=== PATIENT | female | born 1970 | race Caucasian/White ===

== ENCOUNTER 2020-10-24 10:28 | Outpatient (CLI) | payer BC, SELFPAY ==
--- NOTE | ~2020-10-24 | XR_ITS ---
EXAMINATION: XR chest 2V EXAM DATE: 10/24/2020 10:43 INDICATION: R06.02 - Shortness of breath. TECHNIQUE: Frontal and lateral projections of the chest obtained and reviewed. Comparison is made to prior examination from 05/26/2004. FINDINGS: There is moderate cardiomegaly and/or pericardial effusion. There is indistinct reticulati on with a bibasal predominance which may indicate pulmonary edema. Small pleural effusions. No conflu ent consolidation or pneumothorax. There are no osseous abnormalities identified. IMPRESSION: Cardiomegaly and/or pericardial effusion. Small pleural effusions and probable mild pulm onary edema. Reviewed, dictated and finalized at location B. O RN IMPRESSION: Cardiomegaly and/or pericardial effusion. Small pleural effusions and probable mild pulmonary edema.
--- NOTE | 2020-10-24 10:45 | ECG_ITS ---
Measurements Intervals [place] Rate: 106 P: 80 CO: 136 QRS: -15 QRSD: 145 T: 57 QT: 392 QTc: 521 Interpretive Statements SINUS TACHYCARDIA RIGHT ATRIAL ENLARGEMENT LEFT ATRIAL ENLARGEMENT LEFT BUNDLE BRANCH BLOCK ABNORMAL ECG Electronically Signed On 10-24-2020 12:06:45 [employer]ICKEN [employer]ANGER by Red Zimmer D.O.
== END 2020-10-24 10:29 | disposition home or self-care (01) ==
PROVIDERS: PCP Family Medicine; Visit Provider Physician Assistant
DX: R94.31 Abnormal electrocardiogram [ECG] [EKG] (principal); R06.02 Shortness of breath; I51.7 Cardiomegaly; J90 Pleural effusion, not elsewhere classified
CPT/HCPCS: 71046; 93005

== ENCOUNTER 2020-10-24 11:48 | Observation (INO) | payer BC, SELFPAY ==
[2020-10-24] VITALS (15 sets, daily range): BP systolic 130–168; BP diastolic 78–98; PULSE 94–124; RESP 16–24; TEMP 35.8–36.3; O2SAT 95–99; BMI 24.3
--- NOTE | ~2020-10-24 | CT_ITS ---
EXAMINATION: CTA chest PE protocol EXAM DATE: 10/24/2020 14:13 INDICATION: Dyspnea. Cardiomegaly. TECHNIQUE: Spiral CTA of the chest (pulmonary arteries) was performed with 100 cc Omnipaque 350 intr avenous contrast injection. Images were acquired during the pulmonary arterial phase. Coronal maxi mum intensity projection 3D-reconstructions were created by the technologist on dedicated workstation . Axial, coronal and sagittal reformatted images were reviewed. The dose-length product (DLP) for t his examination was 187.09 mGy-cm. The exposure was tailored according to patient size (auto mA exp osure control), and iterative reconstruction (ASIR) was used as additional dose reduction technique. Correlation is made to chest x-ray same date. FINDINGS: Pulmonary arteries are well opacified and without intraluminal filling defects. There is s everely dilated left ventricle and moderately dilated left atrium. Interlobular septal thickening and interspersed groundglass opacities consistent with moderate pulmonary edema. There are small bilater al pleural effusions. No thoracic aortic dissection. Only trace pericardial fluid. Multi segmental l eft lower lobe atelectasis. Tracheobronchial tree is patent. There is no mediastinal, hilar or axil abby lymphadenopathy. There is no pneumothorax. Heart normal in size. No evidence of coronary a rterial calcification. Upper abdomen is unremarkable. There is thoracic spondylosis without osteob lastic or osteolytic lesions identified. IMPRESSION: 1. CHF exacerbation, with significant left ventricular and atrial enlargement. 2. Small pleural effusions. 3. No pulmonary emboli. Reviewed, dictated and finalized at location B. OR PROGRAMMER
--- NOTE | ~2020-10-24 | XR_ITS ---
EXAMINATION: XR chest 2V DATE: 10/24/2020 12:49 INDICATION: Shortness of breath. TECHNIQUE: Frontal and lateral views of the chest were obtained. COMPARISON: Chest 2 views at 10:39 AM FINDINGS: There is a diffuse interstitial pattern, consistent with mild pulmonary edema. There is a s mall right pleural effusion. No pneumothorax. There is enlargement of the cardiac silhouette. IMPRESSION: 1. Mild pulmonary edema. 2. Small right pleural effusion. 3. Enlargement of the cardiac silhouette, consistent with cardiomegaly and/or pericardial effusion. Reviewed, dictated and finalized at location A. LY CHAIN COORDINATOR IMPRESSION: 1. Mild pulmonary edema. 2. Small right pleural effusion. 3. Enlargement of the cardiac silhouette, consistent with cardiomegaly and/or p ericardial effusion.
--- NOTE | 2020-10-24 11:56 | ECG_ITS ---
Measurements Intervals [place] Rate: 129 P: 72 FL: 140 QRS: -66 QRSD: 141 T: 82 QT: 336 QTc: 492 Interpretive Statements SINUS TACHYCARDIA LEFT AXIS DEVIATION LEFT ATRIAL ENLARGEMENT LEFT BUNDLE BRANCH BLOCK BASELINE ARTIFACT- I, AVL ABNORMAL ECG Electronically Signed On 10-24-2020 13:17:22 DAYCARE DIRECTOR by Red Zimmer D.O.
--- NOTE | 2020-10-24 12:03 | PC.NURSE ---
ekg done at [facility] cardiac dept at 1045 today. no chest pain. no ekg done in triage
[2020-10-24 12:15] LABS: Basophils Absolute Auto 0.1 K/mm3 (0.0-0.1); Basophils Percent Auto 0.6 % (0.2-1.2); Eosinophils Absolute Auto 0.2 K/mm3 (0-0.3); Eosinophils Percent Auto 1.4 % (0-4.4); Hematocrit 41.2 % (37.0-47.0); Immature Granulocyte Absolute 0.03 K/mm3 (0.00-0.031); Immature Granulocyte Percent A 0.2 % (0-0.5); Lymphocytes Absolute Auto 2.39 K/mm3 (0.9-3.2); Lymphocytes Percent Auto 19.9 % (18.3-44.2); Mean Corpuscular Volume 91.4 fl (80-100); Mean Platelet Volume 9.4 fl (7.4-10.4); Monocytes Absolute Auto 0.6 K/mm3 (0.1-0.6); Neutrophils Absolute Auto 8.8 K/mm3 (1.3-6.7); Neutrophils Percent Auto 72.9 % (45.5-73.1); Platelet Count Result 307 k/mm3 (150-375); Red Blood Count 4.51 M/mm3 (4.2-5.4); Red Cell Distribution Width 13.2 % (11.5-14.5)
[2020-10-24 12:26] LABS: Anion Gap 7 mmol/L (8-16); Blood Urea Nitrogen 11 mg/dL (7-17); Carbon Dioxide 22 mmol/L (22-30); Chloride 107 mmol/L (98-107); Estimated CRCL calculation 71 ml/min; Estimated Glomerular Filt Rate > 60; Glucose 116 mg/dL (65-105); Sodium 136 mmol/L (137-145)
--- NOTE | 2020-10-24 13:20 | ED.SOB ---
HPI - SOB/Dyspnea General Chief Complaint: Shortness of Breath/Dyspnea Stated Complaint: FLUID AROUND HEART Time Seen by Provider: 10/24/20 13:12 Source: RN notes reviewed History of Present Illness HPI Narrative: Patient presents emergency department from her PCPs office for shortness of breath. Patient has been feeling short of breath for the past 2 weeks but is been worse over the past 3 days. States that the shortness of breath is worse when she lays flat or does activity she had had an outpatient chest x-ray performed that showed enlarged heart with concerns of fluid around the heart was sent for further evaluation. The patient denies any fevers or chills chest pain coughing or any other symptoms she denies any shortness of breath while sitting in bed Related Data Home Medications Medication Instructions Recorded Confirmed duloxetine 30 mg capsule,delayed 30 mg PO DAILY 10/10/19 07/25/20 release pantoprazole 40 mg tablet,delayed 40 mg PO QAM 10/10/19 07/25/20 release Allergies Allergy/AdvReac Type Severity Reaction Status Date / Time clarithromycin Allergy Unknown Unknown Verified 10/24/20 09:06 codeine Allergy Unknown Unknown Verified 10/24/20 09:06 doxycycline Allergy Unknown Unknown Verified 10/24/20 09:06 erythromycin base Allergy Unknown Unknown Verified 10/24/20 09:06 Review of Systems Review of Systems: Narrative: Gen.: Denies fevers or chills ENT: Denies congestion Respiratory: See HPI CV: Denies chest pain or palpitations GI: Denies abdominal pain nausea, emesis or diarrhea Musculoskeletal: Denies back pain or muscle pain Neuro: Denies numbness, tingling, weakness or focal weakness Skin: Denies rash Except as documented, all other systems reviewed and negative [facility] Past Medical History Medical History Depression GERD (gastroesophageal reflux disease) HLD (hyperlipidemia) Surgical History Surgical History Previous section Family History Family History Grandparent Family history of Parkinson's disease Family history of lung cancer Family history of malignant neoplasm of breast Cerebrovascular accident Family history of malignant neoplasm of breast in first degree relative Father Family history of heart disease in male family member before age 55 Family history of elevated blood lipids Family history of cardiovascular disease Mother Diabetes mellitus Other Family history of coronary artery disease Social History Social History Smoking packs per day: 0.5 Smoking cigarettes per day: 10.0 Years smoked: 20 Smoking pack-years: 10.00 Smoking status: Current every day smoker Tobacco type: cigarettes Second hand tobacco smoke exposure: Yes Alcohol intake: never Gender identity (if verbalized by the patient): Female Exam Narrative: Exam Narrative: APPEARANCE: No acute distress, nontoxic, resting in bed EYES: EOMI HEENT: Normocephalic, atraumatic, OMM RESPIRATORY: No respiratory distress Clear to auscultation bilaterally with no rhonchi wheezing or rales. CARDIOVASCULAR: Regular rate and rhythm without murmurs rubs or gallops. ABDOMINAL: Soft, nontender, nondistended, no rebound or guarding MUSCULOSKELETAl: Moves all extremities. No clubbing, cyanosis or edema. NEURO: Awake and alert. Following commands, speech normal, no focal deficits SKIN:: Warm, dry. No rashes lesions or abrasions PSYCHIATRIC: Normal affect/mood, Course Course Emergency Course: Discussed with KULWINDER Bermeo for Dr. Hayward presentation work-up agrees with admission at this time with Lasix 40 mg given Discussed with Dr. Aguilar for cardiology presentation work-up agrees with consult request patient have echo ordered Discussed with patient and family results of
[2020-10-24 14:49] LABS: NT Pro B Type Natriuretic Pept 4230 PG/ML (5-100)
[2020-10-24 14:58] LABS: Troponin I 0.062 ng/mL (0.000-0.034)
[2020-10-24] MEDS: ASPIRIN 81 MG CHEWABLE TABLET 324 MG PO (15:45)
[2020-10-24] MEDS: FUROSEMIDE INJ 40 MG/4 ML VIAL IV PUSH (15:45)
--- NOTE | 2020-10-24 17:50 | ADMGEN ---
This patient, Fatuma Rosales, was admitted to IMU Room 201-01. Patient/family oriented to hospital policies and general routines including ID bracelet, bed and alarms, visiting hours, pain management, procedures, bathroom and other care routines, personal items, smoking policy, room service/diet, and visiting hours. Information on how to activate the Rapid Response Team has been discussed. Patient/Family are encouraged to report perceived risks to care and to ask questions if they do not understand what they are told or what they should do.
[2020-10-24 18:25] LABS: Troponin I 0.063 ng/mL (0.000-0.034)
--- NOTE | 2020-10-24 20:00 | PM.IMHP ---
H&P: HPI History of Present Illness Date/Time: 10/24/20 20:00 Chief Complaint: Shortness of breath. Narrative: This is a 50-year-old female smoker with hyperlipidemia, GERD, depression, and anxiety who presented to the emergency department earlier today from her primary care provider's office for evaluation of shortness of breath. About 2 weeks ago she began experiencing pressure in the epigastric region, radiating in a bandlike fashion around the upper abdomen. It was nearly constant for approximately 2 to 3 days and has been intermittent since that time. She initially attributed that to her GERD and was taking Pepto-Bismol and Prevacid without much benefit. She sees no pattern as to when the pressure sensation occurs, and specifically denies that is related to food and exertion. Over the last several days she has developed shortness of breath with exertion as well as orthopnea. On Thursday she even cut her walk short due to fatigue and shortness of breath. She ended up going to [facility] yesterday for evaluation. No imaging or labs were done however she did have an EKG which reportedly showed a left bundle branch block and she was instructed to go to the emergency room however she declined. She was seen at her primary care provider's office today and a chest x-ray at that time showed cardiomegaly and/or pericardial effusion as well as small pleural effusions and probable mild pulmonary edema. EKG showed a left bundle branch block and she was referred to the emergency department. Chest CTA done in the emergency department showed findings of a CHF exacerbation with significant left ventricular and left atrial enlargement as well as small pleural effusions; no pulmonary emboli. She has no personal history of heart disease but reports early onset heart disease in her father. She has been under lot of stress lately and was quite tearful at the time of my interview. Before the last couple of weeks she has been feeling well and is in pretty good shape. 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 She denies lightheadedness, diaphoresis, chest pain, pleuritic pain, nausea, and vomiting. Review of Systems Review of Systems: Narrative: Twelve systems were reviewed with pertinent positives and negatives as per HPI. No fever, chills, or sweats. No recent cold or flu symptoms. No rash or lesions. No lower extremity edema. Occasionally when resting she will feel fluttering in the low chest/epigastrium which she has always attributed to her GERD. No melena or hematochezia. Except as documented, all other systems were reviewed and are negative. [facility] Past Medical History Medical History (Updated 10/24/20 @ 22:37 by Elvie Meyers PA-C) Anxiety Depression Gastroesophageal reflux disease Hyperlipidemia Tobacco dependence Surgical History Surgical History (Updated 10/24/20 @ 22:34 by Elvie Meyers PA-C) History of section Family History Family History Grandparent Family history of Parkinson's disease Family history of lung cancer Family history of malignant neoplasm of breast Cerebrovascular accident Family history of malignant neoplasm of breast in first degree relative Father Family history of heart disease in male family member before age 55 Family history of elevated blood lipids Family history of cardiovascular disease Mother Diabetes mellitus Other Family history of coronary artery disease Social History Social History (Updated 10/24/20 @ 22:35 by Elvie Meyers PA-C) Social History: The patient lives in [place]. Her is currently in [place] for work. They have 2 grown children, both who are both students at [employer]. She smokes about half a pack of cigarettes per day but has previously smoked as much as 1.5 packs of cigarettes
[2020-10-24] MEDS: NICOTINE (*PBKC) 14 MG PATCH 1 PATCH TRANSDERM (22:17)
[2020-10-24 22:19] LABS: Troponin I 0.066 ng/mL (0.000-0.034)
[2020-10-24] MEDS: ACETAMINOPHEN 325 MG TABLET 650 MG PO (22:40)
[2020-10-24] MEDS: FUROSEMIDE INJ 40 MG/4 ML VIAL 20 MG IV PUSH (23:10)
[2020-10-25] VITALS (17 sets, daily range): BP systolic 119–154; BP diastolic 54–91; PULSE 92–118; RESP 16–20; TEMP 36.2–36.6; O2SAT 95–98
[2020-10-25 05:34] LABS: Basophils Absolute Auto 0.1 K/mm3 (0.0-0.1); Basophils Percent Auto 0.6 % (0.2-1.2); Eosinophils Absolute Auto 0.2 K/mm3 (0-0.3); Eosinophils Percent Auto 1.8 % (0-4.4); Hematocrit 44.3 % (37.0-47.0); Immature Granulocyte Absolute 0.04 K/mm3 (0.00-0.031); Immature Granulocyte Percent A 0.4 % (0-0.5); Lymphocytes Absolute Auto 2.56 K/mm3 (0.9-3.2); Lymphocytes Percent Auto 26.6 % (18.3-44.2); Mean Corpuscular HGB Conc 33.9 g/dl (32-36); Mean Corpuscular Hemoglobin 30.5 pg (26-34); Mean Platelet Volume 9.9 fl (7.4-10.4); Monocytes Absolute Auto 0.6 K/mm3 (0.1-0.6); Monocytes Percent Auto 5.9 % (2.6-8.5); Neutrophils Absolute Auto 6.2 K/mm3 (1.3-6.7); Neutrophils Percent Auto 64.7 % (45.5-73.1); Platelet Count Result 330 k/mm3 (150-375); Red Blood Count 4.92 M/mm3 (4.2-5.4); Red Cell Distribution Width 12.8 % (11.5-14.5); White Blood Count 9.6 K/mm3 (4.5-10.0)
[2020-10-25 05:54] LABS: Anion Gap 8 mmol/L (8-16); Blood Urea Nitrogen 12 mg/dL (7-17); Calcium 8.7 mg/dL (8.4-10.2); Carbon Dioxide 29 mmol/L (22-30); Chloride 100 mmol/L (98-107); Cholesterol 179 mg/dL (0-200); Estimated CRCL calculation 55 ml/min; Estimated Glomerular Filt Rate > 60; Glucose 99 mg/dL (65-105); HDL Direct 46 mg/dL; Magnesium 1.6 mg/dL (1.6-2.3); Sodium 137 mmol/L (137-145); Triglycerides 101 mg/dL (<150)
--- NOTE | 2020-10-25 06:00 | ECHO_ITS ---
Patient Info Name: Fatuma Rosales Age: 50 years : 1970 Gender: Female Ht: 61 in Wt: 128 lbs BSA: 1.59 m2 HR: 93 bpm BP: 154 / 84 mmHg Technical Quality: Good Exam Date: 10/25/2020 8:35 AM Exam Location: [facility] Pul[facility] Patient Status: Inpatient Admit Date: 10/24/2020 Staff Ordering Physician: Vinay Livingston DO Director Experimental Medicine: Tom Christy, MANSOOR, RT Attending Provider: Min Hayward MD Referring Physician: Yara SHARMA; Exam Type: CA echo doppler color flow Study Info Indications I50.1 - Left ventricular failure Complete two-dimensional, color flow and Doppler transthoracic echocardiogram is performed. Strain analysis performed. Summary 1. Complete two-dimensional, color flow and Doppler transthoracic echocardiogram is performed. 2. Left ventricular chamber dimension is severely enlarged. 3. Left ventricular systolic function is severely reduced, estimated at <15%. 4. The left ventricular diastolic function is grade I diastolic dysfunction. 5. Global longitudinal strain is abnormal at -4 %. 6. There is mild aortic valve sclerosis. 7. There is mild mitral valve regurgitation. Left Ventricle Left ventricular chamber dimension is severely enlarged. Left ventricular systolic function is severely reduced, estimated at <15%. There is no increased left ventricular wall thickness. Left ventricular septal wall motion is normal. The left ventricular diastolic function is grade I diastolic dysfunction. Global longitudinal strain is abnormal at -4 %. Right Ventricle Right ventricular chamber dimension is normal. Right ventricular systolic function is normal. Left Atria Left atrial chamber dimension is normal. Right Atria Right atrial chamber dimension is normal. Atrial Septum Intact interatrial septum visualized by color flow imaging. Aortic Valve The aortic valve is trileaflet. There is mild aortic valve sclerosis. There is no aortic valve stenosis. There is no aortic valve regurgitation. Pulmonic Valve The pulmonic valve is normal. There is no pulmonic valve stenosis. There is no pulmonic regurgitation. Mitral Valve The mitral valve has normal leaflets. There is no mitral valve stenosis. There is mild mitral valve regurgitation. Tricuspid Valve The tricuspid valve leaflets are normal. There is no significant tricuspid valve stenosis. There is no tricuspid valve regurgitation. Pericardium/Pleural The pericardium appears normal. There is no pericardial effusion. Inferior Vena Cava Normal inferior vena cava with >50% collapse upon inspiration consistent with normal right atrial pressure, 5 mmHg. Aorta The aortic root size at the sinus of Valsalva is normal. The prox ascending aorta size is normal. Left Ventricular Outflow Tract Name Value Normal LVOT 2D LVOT Diameter 2.0 cm LVOT Doppler LVOT Peak Gradient 6 mmHg LVOT Mean Gradient 3 mmHg LVOT VTI 18 cm LVOT VTI/AV VTI Ratio 0.9 LVOT Stroke Volume
[2020-10-25 06:05] LABS: LDL Cholesterol Direct 119 mg/dL
[2020-10-25] MEDS: NICOTINE (*PBKC) 14 MG PATCH 1 PATCH TRANSDERM (09:56)
[2020-10-25] MEDS: DULoxetine HCL 30 MG CAPSULE.DR PO (09:57)
[2020-10-25] MEDS: ENOXAPARIN 40 MG/0.4 ML SYRINGE SUB-Q (09:57)
[2020-10-25] MEDS: SIMVASTATIN 10 MG TABLET PO (09:57)
--- NOTE | 2020-10-25 10:11 | PM.CNCAR ---
Assessment and Plan Assessment and plan (1) Cardiomyopathy: Code(s): I42.9 - Cardiomyopathy, unspecified Status: Acute Assessment and Plan: New diagnosis severe dilated cardiomyopathy EF less than 20%. Etiology unclear, however, ischemic versus nonischemic discussed in detail the patient. Clinically with suspect nonischemic given symptom and progression yet patient reports family history premature atherosclerosis in her father with CAD and cardiomyopathy. Optimal medical therapy. Discussed the significant benefits with Entresto and beta lanie therapy. Will attempt to obtain through insurance. Otherwise ramipril 2.5 mg daily and carvedilol 3.125 mg twice daily. We discussed in detail noninvasive versus invasive ischemic assessment. Given severe LV dysfunction coronary angiography advised for definitive evaluation of coronary anatomy. Patient verbalized understanding and agreed with plan of care. Risks, benefits, and alternatives discussed. Patient in agreement. Further recommendations to follow post cardiac catheterization. If no significant obstructive CAD is identified in patient is otherwise hemodynamically stable she may be considered for discharge home tomorrow afternoon to follow up as an outpatient. NPO after midnight for coronary angiography tomorrow at 7:30 a.m. (2) Congestive heart failure: Code(s): I50.9 - Heart failure, unspecified Status: Acute Assessment and Plan: Essentially euvolemic at this time after IV Lasix from presentation. She presented with acute decompensated heart failure with reduced ejection fraction. Management as above. (3) Elevated troponin: Code(s): R77.8 - Other specified abnormalities of plasma proteins Status: Acute Assessment and Plan: Flat curve, mild elevation secondary to decompensated heart failure, severe LV dysfunction with strain as opposed to acute coronary syndrome and/or plaque rupture. Therefore, most likely non RI troponin elevation or type 2 infarct. Aspirin 81 mg daily. Angiography as above. (4) Left bundle branch block: Code(s): I44.7 - Left bundle-branch block, unspecified Status: Acute Assessment and Plan: Secondary to dilated cardiomyopathy or severe multivessel CAD. Coronary angiography to delineate. We discussed the significance of this finding as well in detail. All questions answered to her satisfaction. (5) HLD (hyperlipidemia): Qualifiers: Hyperlipidemia type: unspecified Qualified Code(s): E78.5 - Hyperlipidemia, unspecified Code(s): E78.5 - Hyperlipidemia, unspecified Status: Acute Assessment and Plan: If CAD, goal LDL less than 70. Continue statin therapy. (6) Tobacco dependence: Code(s): F17.200 - Nicotine dependence, unspecified, uncomplicated Status: Acute Assessment and Plan: Smoking cessation counseling performed. Patient verbalized understanding and agrees with plan of care. History of Present Illness History of Present Illness Consult date/time: Date of service: 10/25/20 10:11 Cardiology consultation at the request of Elvie Meyers of the [facility] Hospital[facility] service for my opinion regarding CHF, new cardiomyopathy. Requesting physician: Elvie Meyers PA-C Consult reason: congestive heart failure Reason For Visit: CHF/elevated troponin Narrative: Patient is a pleasant 50-year-old female with a past medical history significant for tobacco abuse and dyslipidemia, GERD, and depression anxiety who presents emergency department complaints of worsening 2 weeks constant upper epigastric pressure/tightness in a bandlike radiation worse lying down and with activity. This symptom progressed along with fatigue, exertional dyspnea particularly over the preceding 2-3 days she initially thought was related to acid reflux without resolution with [id number] therapy. She presented to urgent care and then with her PCP in giv
[2020-10-25] MEDS: FUROSEMIDE 20 MG TABLET PO (11:06)
[2020-10-25] MEDS: SACUBITRIL/VALSARTAN 24-26 MG TABLET 1 TAB PO ×2 (11:06→20:32)
[2020-10-25] MEDS: ASPIRIN 81 MG ENTERIC TABLET PO (11:06)
--- NOTE | 2020-10-25 12:00 | PM.IMPN ---
Progress Note: A&P Assessment and Plan (1) Left bundle branch block: Code(s): I44.7 - Left bundle-branch block, unspecified Status: Acute Assessment and Plan: Cardiology was consulted pending final evaluation (2) Congestive heart failure: Code(s): I50.9 - Heart failure, unspecified Status: Acute Assessment and Plan: Acute CHF exacerbation pending ankle to the mind if it is systolic or diastolic and due to the mine further workup Patient does not have history of CHF Patient has family history of heart disease Still continued to complain of shortness of breath Patient denies chest pain denies alcohol or drug abuse Pending echo continue IV diuresis (3) GERD (gastroesophageal reflux disease): Code(s): K21.9 - Gastro-esophageal reflux disease without esophagitis Status: Acute Assessment and Plan: Stable continue PPI (4) Depression: Qualifiers: Depression Type: major depressive disorder Major depression recurrence: single episode Active/Remission status: currently active Major depression episode severity: mild Qualified Code(s): F32.0 - Major depressive disorder, single episode, mild Code(s): F32.9 - Major depressive disorder, single episode, unspecified Status: Acute Assessment and Plan: Stable continue Cymbalta (5) HLD (hyperlipidemia): Qualifiers: Hyperlipidemia type: unspecified Qualified Code(s): E78.5 - Hyperlipidemia, unspecified Code(s): E78.5 - Hyperlipidemia, unspecified Status: Acute Assessment and Plan: Stable continue simvastatin Subjective Date/time seen: 10/25/20 12:00 Patient seen and examined Patient feels weak she is short of breath with activity Patient was admitted to the hospital with chest pain and shortness of breath CT scan of the chest was done negative for PE so severely dilated left ventricular left atrium Patient denies fever headache chest pain I am seeing the patient for shortness of breath Exam Narrative: Exam Narrative: Alert Chest no wheeze crackles Abdomen nontender nondistended CVS S1 + S2 Lower extremity edema Objective Data Vital Signs Vital Signs: Vital Signs - 24 hr 10/24/20 13:07 10/24/20 13:29 10/24/20 14:34 Temperature Pulse Rate 124 H 113 H Respiratory Rate 22 H 23 H Blood Pressure 154/98 H 130/83 Pulse Oximetry 95 98 97 10/24/20 14:52 10/24/20 15:46 10/24/20 17:12 Temperature Pulse Rate 112 H 115 H 105 H Respiratory Rate 17 24 H 20 Blood Pressure 148/89 H 158/97 H 144/86 H Pulse Oximetry 99 97 98 10/24/20 17:26 10/24/20 17:49 10/24/20 17:55 Temperature 96.5 F L 96.5 F L Pulse Rate 112 H 100 100 Respiratory Rate 17 16 16 Blood Pressure 142/86 H 168/87 H 168/87 H Pulse Oximetry 98 97 97 10/24/20 18:00 10/24/20 19:43 10/24/20 20:00 Temperature 96.5 F L Pulse Rate 104 H 98 98 Respiratory Rate 16 16 Blood Pressure 160/78 H Pulse Oximetry 95 95 10/24/20 21:52 10/24/20 23:49 10/25/20 00:00 Temperature 97.6 F Pulse Rate 94 94 98 Respiratory Rate 16 20 Blood Pressure 152/91 H Pulse Oximetry 95 96 10/25/20 02:00 10/25/20 04:00 10/25/20 05:26 Temperature 97.1 F L Pulse Rate 94 102 H 100 Respiratory Rate 20 Blood Pressure 154/84 H Pulse Oximetry 95 10/25/20 08:00 10/25/20 10:00 10/25/20 11:06 Temperature 97.6 F 97.5 F L Pulse Rate 103 H 106 H 103 H Respiratory Rate 16 16 Blood Pressure 131/68 125/77 Pulse Oximetry 97 97 10/25/20 11:30 Temperature Pulse Rate Respiratory Rate Blood Pressure Pulse Oximetry 97 Intake/Output Intake/Output: Intake & Output 10/22/20 10/23/20 10/24/20 10/25/20 23:59 23:59 23:59 23:59 Intake Total 240 840 Balance 240 840 Meds/Results Medications: Active Medications Generic Name Dose Route Start Last Admin Trade Name Freq PRN Reason Stop Dose Admin Acetaminophen 650 mg 10/24/20 22:25 10/24/20 22:40 Acetam
--- NOTE | 2020-10-25 17:24 | PHAR ---
HOME MED VERIFED REGAN D 24 HOUR 1 DAILY
[2020-10-25] MEDS: carvediloL 3.125 MG TABLET PO (20:32)
[2020-10-26] VITALS (20 sets, daily range): BP systolic 99–138; BP diastolic 53–82; PULSE 88–112; RESP 16–18; TEMP 36.6; O2SAT 82–97
--- NOTE | 2020-10-26 07:38 | WPDMODSED ---
Moderate Sedation Note-Pt Data Patient Data Diagnosis: new cardiomyopathy, CHF Present Complaint: none Procedure to be performed/Plan: Left heart catheterization wtih selective right and left and coronary angiography with left ventriculography and hemodynamics with possible percutaneous intervention and stent implantation Allergies Allergy/AdvReac Type Severity Reaction Status Date / Time clarithromycin Allergy Unknown Rash Verified 10/24/20 18:00 codeine Allergy Unknown Vomiting Verified 10/24/20 18:00 doxycycline Allergy Unknown Rash Verified 10/24/20 18:00 erythromycin base Allergy Unknown Rash Verified 10/24/20 18:00 Home Medications Medication Instructions Recorded Confirmed Type duloxetine 30 mg capsule,delayed 30 mg PO DAILY 10/10/19 10/24/20 History release fexofenadine-pseudoephedrine ER 1 tablet PO DAILY #90 tablet 08/24/20 10/24/20 Rx 180 mg-240 mg tablet,ext.release 24 hr simvastatin 10 mg PO DAILY 10/24/20 10/24/20 History fexofenadine-pseudoephedrine 1 tablet PO DAILY 10/25/20 10/25/20 History [Yudy-D 24 Hour] Current Medications: Active Medications Acetaminophen (Acetaminophen 325 Mg Tablet) 650 mg PO Q6H PRN PRN Reason: Mild Pain (1-3) or Fever Last Admin: 10/24/20 22:40 Dose: 650 mg Documented by: Aspirin (Aspirin 81 Mg Enteric Tablet) [facility] [place] Last Admin: 10/25/20 11:06 Dose: 81 mg Documented by: Carvedilol (Carvedilol 3.125 Mg Tablet) 3.125 mg PO Q12HR [facility] Last Admin: 10/25/20 20:32 Dose: 3.125 mg Documented by: Duloxetine HCl (Duloxetine Hcl 30 Mg Capsule.Dr) 30 mg PO DAILY [facility] Last Admin: 10/25/20 09:57 Dose: 30 mg Documented by: Enoxaparin Sodium (Enoxaparin 40 Mg/0.4 Ml Syringe) 40 mg SUB-Q DAILY [facility] Last Admin: 10/25/20 09:57 Dose: 40 mg Documented by: Furosemide (Furosemide 20 Mg Tablet) 20 mg PO DAILY [facility] Last Admin: 10/25/20 11:06 Dose: 20 mg Documented by: Nicotine (Nicotine (*Pbkc) 14 Mg Patch) 1 patch [facility]ERM [facility] Last Admin: 10/25/20 09:56 Dose: 1 patch Documented by: Sacubitril/Valsartan (Sacubitril/Valsartan 24-26 Mg Tablet) 1 tab PO Q12HR [facility] Last Admin: 10/25/20 20:32 Dose: 1 tab Documented by: Simvastatin (Simvastatin 10 Mg Tablet) 10 mg PO DAILY [facility] Last Admin: 10/25/20 09:57 Dose: 10 mg Documented by: Sedation/Anesthesia: No previous sedation/anesthesia problems (including family history). PMFSH Past Medical History Medical History Anxiety Depression Gastroesophageal reflux disease Hyperlipidemia Tobacco dependence Surgical History Surgical History History of section Family History Family History Grandparent Family history of Parkinson's disease Family history of lung cancer Family history of malignant neoplasm of breast Cerebrovascular accident Family history of malignant neoplasm of breast in first degree relative Father Family history of heart disease in male family member before age 55 Family history of elevated blood lipids Family history of cardiovascular disease Mother Diabetes mellitus Other Family history of coronary artery disease Social History Social History Social History: The patient lives in [place]. Her is currently in [place] for work. They have 2 grown children, both who are both students at [employer]. She smokes about half a pack of cigarettes per day but has previously smoked as much as 1.5 packs of cigarettes a day. She drinks perhaps 1 alcoholic beverage a week. No illicit substance use. Full code. Smoking packs per day: 0.5 Smoking cigarettes per day: 10.0 Years smoked: 25 Smoking pack-years: 12.50 Smoking status: Current every day smoker Tobacco type: cigarettes Second hand
--- NOTE | 2020-10-26 08:07 | WPDCARDPROC ---
Cardiac Cath Procedure Note Date of procedure:: 10/26/20 Performing physician:: Sunil Aguilar MD Indication:: new diagnosis cardiomyopathy, CHF with mild troponin elevation Brief clinical history:: Patient is a 50-year-old female with a past medical history significant for tobacco abuse,dyslipidemia, and family history premature atherosclerosis in her father presented with progressive fatigue, exertional dyspnea admitted with new onset heart failure discovered to have severe dilated LV dysfunction EF estimated approximately 20% with a mild flat troponin elevation 0.06 referred for left heart catheterization for delineation of her coronary anatomy. Procedure Procedure performed:: PROCEDURES PERFORMED: 1. Left heart catheterization 2. Selective left and right coronary angiography 3. Left ventriculography and hemodynamics 4. Moderate/conscious sedation administration Sedation/Medication given:: MODERATE SEDATION/ANESTHESIA ADMINISTRATION: Patient reports no prior problems with sedation/anesthesia. Please see pre-sedation noted for physical examination documentation. Sedation start time was 0745 and end time was 0802 for a total intra-service/procedure face-face time of 17 minutes. A total of 1 mg intravenous Versed and a total of 50 mcg intravenous Fentanyl was administered for moderate sedation. Moderate sedation was administered by qualified/certified observer Sheryl Cruz RN under my supervision with intra-procedure [id number] observation and management throughout the entirety of the procedure. There were no other issues or complications and patient tolerated the procedure well. See post-anesthesia documentation. Access site:: right femoral artery Estimated blood loss:: 5-10cc Procedure note:: CATHETERS UTILIZED: Left coronary system- 5 Latvian JL4 catheter Right coronary system- 5 Latvian JR4 catheter Left ventriculography and hemodynamics- 5 Latvian angled pigtail catheter PROCEDURE IN DETAIL: After verbal and written informed consent was obtained the patient, risks, benefits, and alternatives explained in detail the patient agreed to proceed with the plan of care as outlined above. The patient was subsequently brought to the cardiac catheterization lab, placed on the cardiac catheterization table, and prepped and draped in the usual sterile fashion. Utilizing approximately 12cc of 1% subcutaneous Lidocaine, the right groin was then locally anesthetized. Utilizing the modified Seldinger technique, a 5 Latvian arterial vascular access sheath was inserted in the right common femoral artery easily and without complications. Through this access, coronary angiography was subsequently obtained in multiple standard re-projections. Following this, a 5 Latvian angled pigtail catheter was advanced retrograde across aortic valve into the cavity of the left ventricle. Left ventriculography was performed and pullback across aortic valve was subsequently recorded. The vascular access sheath and angiographic catheters were flushed before and after catheter exchanges. At the conclusion of the diagnostic portion of the procedure, all angiographic guidewires and catheters were removed and the 5 Latvian arterial vascular access sheath was then pulled and satisfactory hemostasis was achieved using manual compression. There no complications noted at the conclusion of the diagnostic portion of the study. Findings:: CORONARY ANGIOGRAPHY: The LEFT MAIN arose from the left coronary cusp and was without angiographically significant disease. The left main then trifurcated into the left anterior descending artery, small ramus intermedius branch, and circumflex coronary artery. LEFT ANTERIOR DESCENDING ARTERY: The left anterior descending artery was a small to moderate caliber vessel extending to the apex giving rise to moderate septal wood lather branch and a small diagonal branch and is angiographically normal. RAMUS INTERMEDIUS BRANCH: Smaller caliber vesse
--- NOTE | 2020-10-26 09:13 | PC.NURSE ---
Patient left for labor standards director about 0715. This RN did not see/assess patient before leaving the floor this AM.
[2020-10-26] MEDS: POTASSIUM CHLORIDE 20 MEQ PACKET (FOR LIQUID) 40 MEQ PO (10:14)
[2020-10-26] MEDS: SACUBITRIL/VALSARTAN 24-26 MG TABLET 1 TAB PO (10:18)
[2020-10-26] MEDS: NICOTINE (*PBKC) 14 MG PATCH 1 PATCH TRANSDERM (10:18)
[2020-10-26] MEDS: DULoxetine HCL 30 MG CAPSULE.DR PO (10:20)
[2020-10-26] MEDS: carvediloL 3.125 MG TABLET PO (10:20)
[2020-10-26] MEDS: SODIUM CHLORIDE 0.9% IV 1,000 ML 125 ML IV CONT (10:21)
[2020-10-26] MEDS: SIMVASTATIN 10 MG TABLET PO (10:21)
[2020-10-26] MEDS: ASPIRIN 81 MG ENTERIC TABLET PO (10:21)
[2020-10-26] MEDS: ENOXAPARIN 40 MG/0.4 ML SYRINGE SUB-Q (10:22)
[2020-10-26 10:47] LABS: Basophils Percent Auto 0.3 % (0.2-1.2); Eosinophils Absolute Auto 0.1 K/mm3 (0-0.3); Eosinophils Percent Auto 0.7 % (0-4.4); Hematocrit 46.7 % (37.0-47.0); Hemoglobin 15.8 g/dL (12.0-15.0); Immature Granulocyte Absolute 0.04 K/mm3 (0.00-0.031); Immature Granulocyte Percent A 0.3 % (0-0.5); Lymphocytes Absolute Auto 2.07 K/mm3 (0.9-3.2); Lymphocytes Percent Auto 17.1 % (18.3-44.2); Mean Corpuscular HGB Conc 33.8 g/dl (32-36); Mean Corpuscular Hemoglobin 30.9 pg (26-34); Mean Corpuscular Volume 91.2 fl (80-100); Mean Platelet Volume 9.4 fl (7.4-10.4); Monocytes Absolute Auto 0.9 K/mm3 (0.1-0.6); Monocytes Percent Auto 7.1 % (2.6-8.5); Neutrophils Percent Auto 74.5 % (45.5-73.1); Platelet Count Result 342 k/mm3 (150-375); Red Blood Count 5.12 M/mm3 (4.2-5.4); White Blood Count 12.1 K/mm3 (4.5-10.0)
[2020-10-26 10:58] LABS: Alanine Aminotransferase 18 U/L (4-35); Albumin Level 3.8 g/dL (3.5-5.1); Alkaline Phosphatase 63 U/L (38-126); Anion Gap 8 mmol/L (8-16); Aspartate Amino Transferase 22 U/L (14-36); Bilirubin,Total 0.8 mg/dL (0.2-1.3); Blood Urea Nitrogen 13 mg/dL (7-17); Calcium 8.7 mg/dL (8.4-10.2); Carbon Dioxide 24 mmol/L (22-30); Chloride 105 mmol/L (98-107); Estimated CRCL calculation 62 ml/min; Estimated Glomerular Filt Rate > 60; Glucose 121 mg/dL (65-105); Potassium 3.8 mmol/L (3.4-5.0); Sodium 137 mmol/L (137-145)
[2020-10-26] MEDS: FUROSEMIDE 20 MG TABLET PO (12:08)
--- NOTE | 2020-10-26 13:36 | PM.PNCARD ---
Progress Note: A&P Assessment and Plan (1) Cardiomyopathy: Code(s): I42.9 - Cardiomyopathy, unspecified Status: Acute Assessment and Plan: Status post left heart catheterization normal coronary anatomy consistent with dilated nonischemic cardiomyopathy EF 20%. Patient at elevated risk for sudden cardiac due to VT and or VF. Discussed risks, benefits, and alternatives with life vest to reduce risk for sudden cardiac and the rationale in this regard. Patient verbalized understanding and expressed a desire to proceed with wearing a LifeVest. Although she will need to follow-up with a new camera operator after her initial follow-up visit due to her insurance as she agrees I will initiate life vest arrangements for fitting of prior to discharge. Patient verbalized understanding and agreed with this plan of care. Stable for discharge home a after LifeVest fitting. As insurance has not yet approved Nehal will discharge on ramipril 2.5 mg daily, carvedilol 3.125 mg twice daily, Lasix 20 mg daily and continuation of statin therapy. She does not require aspirin at this time. She will follow-up with me 1 time after her hospitalization and then will need to establish with a new camera operator due to insurance restrictions. (2) Congestive heart failure: Code(s): I50.9 - Heart failure, unspecified Status: Acute Assessment and Plan: Euvolemic. She presented with acute decompensated heart failure with reduced ejection fraction. Management as above. Lasix 20 mg daily. Check BMP in 1 week post discharge. (3) Elevated troponin: Code(s): R77.8 - Other specified abnormalities of plasma proteins Status: Acute Assessment and Plan: Flat curve, mild elevation secondary to decompensated heart failure, severe LV dysfunction with strain. (4) Left bundle branch block: Code(s): I44.7 - Left bundle-branch block, unspecified Status: Acute Assessment and Plan: Secondary to dilated cardiomyopathy or severe multivessel CAD. Coronary angiography to delineate. We discussed the significance of this finding as well in detail. All questions answered to her satisfaction. (5) HLD (hyperlipidemia): Qualifiers: Hyperlipidemia type: unspecified Qualified Code(s): E78.5 - Hyperlipidemia, unspecified Code(s): E78.5 - Hyperlipidemia, unspecified Status: Acute Assessment and Plan: If CAD, goal LDL less than 70. Continue statin therapy. (6) Tobacco dependence: Code(s): F17.200 - Nicotine dependence, unspecified, uncomplicated Status: Acute Assessment and Plan: Smoking cessation counseling performed. Patient verbalized understanding and agrees with plan of care. Subjective Date/time seen: Date of service: 10/26/20 13:36 Follow-up for CHF, new diagnosis cardiomyopathy Status post left heart catheterization, no CAD, nonischemic cardiomyopathy EF 20%. Denies chest pain, shortness of breath, feels well. Stable for discharge today. Review of Systems Review of Systems: All systems reviewed & are unremarkable except as noted in HPI and below Constitutional: Constitutional: Reports as per HPI, Reports no additional constitutional complaints, Reports fatigue and Reports weakness Eyes: Eyes: Reports as per HPI and Reports no additional eye complaints ENT: Reports system reviewed and no additional complaints, except as documented and Reports as per HPI Cardiovascular: Cardiovascular: Reports as per HPI, Reports no additional cardiovascular complaints, Reports chest pain, Denies diaphoresis, Denies pedal edema, Denies leg edema, Denies lightheadedness, Denies palpitations, Reports dyspnea and Reports dyspnea on exertion Respiratory: Respiratory: Reports as per HPI, Reports no additional respiratory complaints, Denies cough, Reports dyspnea, Reports dyspnea on exertion and Denies wheezing Gastrointestinal: Gastrointestinal: Reports as pe
--- NOTE | 2020-10-26 13:49 | PM.DS ---
DS: Admitting Diagnosis Admitting Diagnosis Admitting Diagnosis: Shortness of breath DS: Discharge Diagnosis Discharge Diagnosis (1) Left bundle branch block: Code(s): I44.7 - Left bundle-branch block, unspecified Status: Acute Assessment and Plan: Cardiology was consulted cardiac catheterization was done was negative for significant coronary artery disease (2) Congestive heart failure: Code(s): I50.9 - Heart failure, unspecified Status: Acute Assessment and Plan: acute on top of chronic systolic CHF exacerbation Life vest Patient does not have history of CHF Patient has family history of heart disease Still continued to complain of shortness of breath Patient denies chest pain denies alcohol or drug abuse Follow-up with cardiology as outpatient Patient will be discharged on oral diuretics Patient has hypokalemia repeat CMP in 1 week follow-up with PCP (3) GERD (gastroesophageal reflux disease): Code(s): K21.9 - Gastro-esophageal reflux disease without esophagitis Status: Acute Assessment and Plan: Stable continue PPI (4) Depression: Qualifiers: Depression Type: major depressive disorder Major depression recurrence: single episode Active/Remission status: currently active Major depression episode severity: mild Qualified Code(s): F32.0 - Major depressive disorder, single episode, mild Code(s): F32.9 - Major depressive disorder, single episode, unspecified Status: Acute Assessment and Plan: Stable continue Cymbalta (5) HLD (hyperlipidemia): Qualifiers: Hyperlipidemia type: unspecified Qualified Code(s): E78.5 - Hyperlipidemia, unspecified Code(s): E78.5 - Hyperlipidemia, unspecified Status: Acute Assessment and Plan: Stable continue simvastatin DS: Summary Hospital Course Hospital Course: Patient was admitted to the hospital with shortness of breath was found to have acute on top of chronic systolic CHF exacerbation treated with IV diuresis follow-up with cardiology as outpatient patient will need further workup for etiology of CHF may need cardiac MRI cardiac catheterization was negative for acute coronary artery disease Time Spent with Patient Time attestation: Total time spent providing and/or coordinating discharge services: Exam Narrative: Exam Narrative: Alert Chest no wheeze crackles Abdomen nontender nondistended CVS S1 + S2 Lower extremity edema DS: Data Data Completed and Pending Labs on day of discharge: Labs from last 24 hours 10/26/20 10/26/20 10:13 10:13 WBC 12.1 H RBC 5.12 Hgb 15.8 H Hct 46.7 MCV 91.2 MCH 30.9 MCHC 33.8 RDW 13.0 Plt Count 342 MPV 9.4 Immature Gran % (Auto) 0.3 Neut % (Auto) 74.5 H Lymph % (Auto) 17.1 L [place] % (Auto) 7.1 Eos % (Auto) 0.7 Baso % (Auto) 0.3 Lymph # (Auto) 2.07 [place] # (Auto) 0.9 H Eos # (Auto) 0.1 Baso # (Auto) 0.0 Abs Immat Gran (auto) 0.04 H Absolute Neuts (auto) 9.0 H Absolute Nucleated RBC 0.0 Nucleated RBC % 0.0 Sodium 137 Potassium 3.8 Chloride 105 Carbon Dioxide 24 Anion Gap 8 BUN 13 Creatinine 0.70 Estim Creat Clear Calc 62 Estimated GFR > 60 Glucose 121 H Calcium 8.7 Total Bilirubin 0.8 AST 22 ALT 18 Alkaline Phosphatase 63 Total Protein 6.0 L Albumin 3.8 Discharge Plan Discharge Attending physician on discharge: Agustin Arita M.A. Consulting providers: Sunil Aguilar Discharging Clinician: Agustin Arita M.A. Anticipated Discharge Date/Time: 10/26/20 13:49 Patient Disposition: Home, Self-Care Activity: as tolerated Diet: low sodium Discharge Instructions: No driving for 24 hours. No lifting, pushing, or pulling more than 10 lb for 1 week. No strenuous exercise or activity (including sex) for 1 week May shower but no tub baths or swimming pool for 1 week Avoid pressure hot tub Stay
== END 2020-10-26 14:48 | disposition home or self-care (01) ==
LOC: ANHED 15:00 → ANHIMU 18:26
PROVIDERS: Emergency Medicine; Internal Medicine Cardiovascular Disease; Physician Assistant; Admitting Provider Internal Medicine; Emergency Provider Emergency Medicine; PCP Family Medicine; Visit Provider Internal Medicine
PROC: 4A023N7 Measurement of Cardiac Sampling and Pressure, Left Heart, Percutaneous Approach (ICD-10-PCS; CPT 93452; principal; 2020-10-26 07:00)
DX: I11.0 Hypertensive heart disease with heart failure (principal); I50.23 Acute on chronic systolic (congestive) heart failure; I44.7 Left bundle-branch block, unspecified; I42.9 Cardiomyopathy, unspecified; E87.6 Hypokalemia; E78.5 Hyperlipidemia, unspecified; F17.210 Nicotine dependence, cigarettes, uncomplicated; F41.8 Other specified anxiety disorders; K21.9 Gastro-esophageal reflux disease without esophagitis; R77.8 Other specified abnormalities of plasma proteins
CPT/HCPCS: 36415; 71046; 71275; 80048; 80053; 80061; 83735; 83880; 84443; 84484; 85025; 93005; 93306; 93458; 96372; 96374; 96376; 99285; A9270; C1887; C1894; G0378; J1644; J1650; J1940; J2250; J3010; J7030; J7040; Q9967

== ENCOUNTER 2020-11-21 16:02 | Outpatient (CLI) | payer BC, SELFPAY ==
--- NOTE | ~2020-11-21 | MM_ITS ---
EXAMINATION: MM screening nadine BI w julianna HISTORY: Screening mammogram TECHNIQUE: Craniocaudal and mediolateral oblique 3-D tomosynthesis images were obtained and synthetic 2-D images were generated. CAD analysis was submitted and interpreted. COMPARISON: 10/06/2019 bilateral digital screening mammogram 8. 5 12/2017 diagnostic left digital mammogram 05/06/2018, 09/17/2016 bilateral digital screening mammogram examinations BREAST PARENCHYMAL COMPOSITION: The breasts are heterogeneously dense, which may obscure small masses . FINDINGS: There is no evidence of suspicious mass, calcification, or architectural distortion to sugg est malignancy in either breast. There has been no suspicious interval change. IMPRESSION: 1. No mammographic evidence of malignancy. 2. Recommend routine screening mammography in one year. BI-RADS Category 1: Negative Reviewed, dictated and finalized at location A. R [employer] [employer]
== END 2020-11-21 16:03 | disposition home or self-care (01) ==
LOC: ANHIMG 16:04
PROVIDERS: PCP Family Medicine; Visit Provider Obstetrics & Gynecology Gynecology
DX: Z12.31 Encounter for screening mammogram for malignant neoplasm of breast (principal)
CPT/HCPCS: 77063; 77067

== ENCOUNTER → 2021-03-01 07:31 | Outpatient (CLI) | payer BC, SELFPAY ==
[2021-03-01 19:22] LABS: SARS-CoV-2 RNA PCR Negative
== END ==
PROVIDERS: PCP Family Medicine; Visit Provider Obstetrics & Gynecology Gynecology
DX: Z01.812 Encounter for preprocedural laboratory examination (principal); Z20.822 Contact with and (suspected) exposure to COVID-19
CPT/HCPCS: C9803; U0003; U0005

== ENCOUNTER 2021-03-01 07:58 | Outpatient (CLI) | payer BC, SELFPAY ==
[2021-03-01 08:49] LABS: Anion Gap 7 mmol/L (8-16); Blood Urea Nitrogen 15 mg/dL (7-17); Carbon Dioxide 27 mmol/L (22-30); Chloride 104 mmol/L (98-107); Estimated Glomerular Filt Rate > 60; Glucose 166 mg/dL (65-105); Potassium 3.6 mmol/L (3.4-5.0); Sodium 138 mmol/L (137-145)
== END 2021-03-01 07:59 | disposition home or self-care (01) ==
LOC: ANHSURGERY 08:01
PROVIDERS: Anesthesiology; PCP Family Medicine; Visit Provider Obstetrics & Gynecology Gynecology
DX: Z01.812 Encounter for preprocedural laboratory examination (principal); Z51.81 Encounter for therapeutic drug level monitoring; Z79.899 Other long term (current) drug therapy
CPT/HCPCS: 36415; 80048

== ENCOUNTER 2021-03-04 00:51 | Day surgery (SDC) | payer BC, SELFPAY ==
[2021-02-25 15:19] VITALS: BMI 26.0
[2021-03-04] MEDS: LACTATED RINGERS 1,000 ML 30 ML IV CONT (06:46)
[2021-03-04] MEDS: ACETAMINOPHEN 500 MG TABLET 1000 MG PO (06:49)
--- NOTE | 2021-03-04 07:07 | PM.HPGS ---
History of Present Illness History of Present Illness Consent: Risks, benefits, and alternatives have been discussed and questions answered. Patient agrees to proceed with procedure. Chief complaint: high grade squamous intraepithelial lesion Narrative: Fatuma Rosales is a 50 year old female with pap showing ANGELICA. Colposcopic biopsy, ECC, and EMB all normal. Recommend further work up with LEEP and top hat. Patient has a distant history of cryotherapy of cerivx around 19 yo. RIsks of infection, bleeding, and injury to surrounding tissues discussed. Possible pathology reviewed. In addition, her IUD is due out and wants it removed at the time of surgery. Agrees to proceed. Also, patient wants her IUD removed. Questions answered and patient agrees to proceed. Review of Systems Review of Systems: Narrative: not repeated day of surgery; patient states no changes in status [facility] Past Medical History Medical History (Updated 03/04/21 @ 07:12 by Tammy Mo MD) Anxiety Depression Gastroesophageal reflux disease Hyperlipidemia (normal spontaneous vaginal delivery) Tobacco dependence Surgical History Surgical History (Reviewed 01/01/21 @ 10:29 by Sheryl Castillo [facility]) History of section Family History Family History (Reviewed 01/01/21 @ 10:29 by Sheryl Castillo [facility]) Grandparent Family history of Parkinson's disease Family history of lung cancer Family history of malignant neoplasm of breast Cerebrovascular accident Family history of malignant neoplasm of breast in first degree relative Father Family history of heart disease in male family member before age 55 Family history of elevated blood lipids Family history of cardiovascular disease Mother Diabetes mellitus Other Family history of coronary artery disease Social History Social History (Reviewed 01/01/21 @ 10:29 by Sheryl Castillo [facility]) Social History: The patient lives in [place]. Her is currently in [place] for work. They have 2 grown children, both who are both students at [employer]. She smokes about half a pack of cigarettes per day but has previously smoked as much as 1.5 packs of cigarettes a day. She drinks perhaps 1 alcoholic beverage a week. No illicit substance use. Full code. Smoking packs per day: 1.5 Smoking cigarettes per day: 30.0 Years smoked: 25 Smoking pack-years: 37.50 Smoking status: Current every day smoker Tobacco type: cigarettes Second hand tobacco smoke exposure: Yes Additional smoking assessment comments: HAS BEEN DECREASING TO 1/4 PPD SINCE OCTOBER Alcohol intake: never Drinks per week: 1 Substance use: never Substance use type: does not use Living arrangements: with family Gender identity (if verbalized by the patient): Female Spiritual care concerns: No Meds Home Medications and Allergies Home Medications Medication Instructions Recorded Confirmed Type carvedilol 6.25 mg tablet 6.25 mg PO Q12H 01/01/21 02/25/21 History duloxetine 60 mg capsule,delayed 60 mg PO DAILY 01/01/21 02/25/21 History release sacubitril 24 mg-valsartan 26 mg 1 tablet PO BID 01/01/21 02/25/21 History tablet fexofenadine-pseudoephedrine ER 1 tablet PO DAILY #90 tablet 02/25/21 02/25/21 Rx 180 mg-240 mg tablet,ext.release 24 hr fiber 2 tablet PO DAILY 02/25/21 02/25/21 History furosemide 40 mg PO DAILY 02/25/21 02/25/21 History pantoprazole [Protonix] 40 mg PO DAILY 02/25/21 02/25/21 History potassium chloride 20 meq PO DAILY 02/25/21 02/25/21 History simvastatin 10 mg PO HS 02/25/21 02/25/21 History Allergies Allergy/AdvReac Type Severity Reaction Status Date / Time clarithromycin Allergy Unknown Rash Verified 03/04/21 07:08 codeine Allergy Unknown Vomiting Verified 03/04/21 07:08 doxycycline Allergy Unknown Rash Verified 03/04/21 07:08 erythromycin base Allergy Unknown Rash Verified 03/04/21 07:08 Exam Const:
[2021-03-04 07:11] VITALS: BP 111/58; PULSE 75; RESP 18; TEMP 36.3; O2SAT 99
--- NOTE | 2021-03-04 07:13 | WPDHPUPDATE1 ---
History and Physical Update Update Date/Time: 03/04/21 07:13 History and Physical has been reviewed, including an updated exam of the patient. There are NO changes in the patient's condition. Risks, benefits, and alternatives have been discussed and questions answered. Patient agrees to proceed with procedure.
--- NOTE | 2021-03-04 07:37 | WPDANESEPPF ---
Anes - Initial Pre Proc Eval Procedure: Operation Date: 03/04/21 08:30 Proposed Procedures p Loop Electrical Excision Procedure With TopHat, Intrauterine Device Removal - Tammy Mo MD Date/Time: 03/04/21 07:37 Surgeon: Tammy Mo MD Pre Op Diagnosis: high grade squamous intraepithelial lesion Patient Data Age: 50 Gender: F Height: 1.55 m Weight: 62.3 kg Last Vital Signs Temp 36.3 C L 03/04/21 07:11 Pulse 75 03/04/21 07:11 Resp 18 03/04/21 07:11 BP 111/58 L 03/04/21 07:11 Pulse Ox 99 03/04/21 07:11 Allergies Allergy/AdvReac Type Severity Reaction Status Date / Time clarithromycin Allergy Unknown Rash Verified 03/04/21 07:08 codeine Allergy Unknown Vomiting Verified 03/04/21 07:08 doxycycline Allergy Unknown Rash Verified 03/04/21 07:08 erythromycin base Allergy Unknown Rash Verified 03/04/21 07:08 Home Medications Medication Instructions Recorded Confirmed Type carvedilol 6.25 mg tablet 6.25 mg PO Q12H 01/01/21 03/04/21 History duloxetine 60 mg capsule,delayed 60 mg PO DAILY 01/01/21 03/04/21 History release sacubitril 24 mg-valsartan 26 mg 1 tablet PO BID 01/01/21 03/04/21 History tablet fexofenadine-pseudoephedrine ER 1 tablet PO DAILY #90 tablet 02/25/21 03/04/21 Rx 180 mg-240 mg tablet,ext.release 24 hr fiber 2 tablet PO DAILY 02/25/21 03/04/21 History furosemide 40 mg PO DAILY 02/25/21 03/04/21 History pantoprazole [Protonix] 40 mg PO DAILY 02/25/21 03/04/21 History potassium chloride 20 meq PO DAILY 02/25/21 03/04/21 History simvastatin 10 mg PO HS 02/25/21 03/04/21 History Patient hx anesthesia problems: none Family hx anesthesia problems: none PMFSH Past Medical History Medical History (Updated 03/04/21 @ 07:48 by Joe Fox DO) Anxiety Cardiomyopathy EF% on echo in was <15%, patient states more recent echo showed EF - 25%. CHF (congestive heart failure) Depression Gastroesophageal reflux disease Hyperlipidemia ICD (implantable cardioverter-defibrillator) in place placed 02/12/21 Left bundle branch block (normal spontaneous vaginal delivery) Tobacco dependence Surgical History Surgical History History of section Family History Family History Grandparent Family history of Parkinson's disease Family history of lung cancer Family history of malignant neoplasm of breast Cerebrovascular accident Family history of malignant neoplasm of breast in first degree relative Father Family history of heart disease in male family member before age 55 Family history of elevated blood lipids Family history of cardiovascular disease Mother Diabetes mellitus Other Family history of coronary artery disease Social History Social History Social History: The patient lives in [place]. Her is currently in [place] for work. They have 2 grown children, both who are both students at [employer]. She smokes about half a pack of cigarettes per day but has previously smoked as much as 1.5 packs of cigarettes a day. She drinks perhaps 1 alcoholic beverage a week. No illicit substance use. Full code. Smoking packs per day: 1.5 Smoking cigarettes per day: 30.0 Years smoked: 25 Smoking pack-years: 37.50 Smoking status: Current every day smoker Tobacco type: cigarettes Second hand tobacco smoke exposure: Yes Additional smoking assessment comments: HAS BEEN DECREASING TO 1/4 PPD SINCE OCTOBER Alcohol intake: never Drinks per week: 1 Substance use: never Substance use type: does not use Living arrangements: with family Gender identity (if verbalized by the patient): Female Spiritual care concerns: No Anes - Eval Final PreProcedure Day of Procedure 03/04/21 07:37 Pat
[2021-03-04] MEDS: LIDO 1%/EPINEPHRINE 1:100,000 50 ML VIAL 10 ML INFILTRATE (08:19)
--- NOTE | 2021-03-04 08:45 | PM.PROC ---
Procedure Note - Detailed Date of procedure: 03/04/21 Pre-op diagnosis: high grade squamous intraepithelial lesion ANGELICA requests IUD removal Post-op diagnosis: same Procedure performed: LEEP with top hat; IUD removal Description of procedure: The patient is taken to the operating and placed under anesthesia in the dorsal lithotomy position. She is draped. A coated speculum was placed in the vagina and the cervix bathed with ascetic acid. The cervix inspected with the microscope with no abnormalities noted. The IUD is removed intact with a ring forceps. The IUD is discarded. The 2x1cm loop was used for a single pass LEEP at 60 w of cutting power. A 1x1cm loop was used for a top hat with a single pass also at 60 w of cutting power. Monsel's solution is applied to the cone bed with good hemostasis noted. All instruments are removed and the patient awakened from anesthesia. She was taken to recovery in stable condition. Sponge, needle, and instrument counts are correct per the OR staff. Anesthesia: MAC and local Surgeon: Tammy Mo MD Estimated blood loss (mL): 5 Drains: No Packing: No Pathology: yes (Leep marked at 12 and top hat marked at 12) Complications: No immediate complications Condition: stable Disposition: PACU Findings: No aceto-white epithelium noted; IUD strings are visible
[2021-03-04 08:50] VITALS: BP 112/46; PULSE 64; RESP 16; O2SAT 95
[2021-03-04 09:20] VITALS: BP 105/41; PULSE 63; RESP 16; O2SAT 98
[2021-03-04 09:40] VITALS: BP 118/45; PULSE 64; RESP 16
[2021-03-04 09:50] VITALS: BP 133/49; PULSE 60; RESP 16
== END 2021-03-04 09:59 | disposition home or self-care (01) ==
PROVIDERS: PCP Family Medicine; Visit Provider Obstetrics & Gynecology Gynecology
PROC: 0UBC7ZZ Excision of Cervix, Via Natural or Artificial Opening (ICD-10-PCS; CPT 57522; principal; 2021-03-04 08:30)
DX: N87.1 Moderate cervical dysplasia (principal); Z30.432 Encounter for removal of intrauterine contraceptive device; E78.5 Hyperlipidemia, unspecified; K21.9 Gastro-esophageal reflux disease without esophagitis; F41.8 Other specified anxiety disorders; F17.210 Nicotine dependence, cigarettes, uncomplicated
CPT/HCPCS: 57522; 58301; 36415; 80048; 88305; A9270; C9803; J2250; J2704; J3010; J7120; U0003; U0005

== ENCOUNTER 2021-06-05 19:17 | Emergency (ER) | payer BC, SELFPAY ==
[2021-06-05 19:25] VITALS: BP 144/59; PULSE 89; RESP 16; TEMP 36.6; O2SAT 97
[2021-06-05 19:27] VITALS: BP 144/59; PULSE 89; RESP 16; TEMP 36.6; O2SAT 97
[2021-06-05] MEDS: TETANUS,DIPHTHERIA,AC PERTUSSIS ADULT (0.5 ML) BOOSTRIX IM (19:34)
--- NOTE | 2021-06-05 19:49 | ED.GENADULT ---
HPI - General Adult General Chief complaint: Animal Bite Stated complaint: Dog bite Time Seen by Provider: 06/05/21 19:45 Source: patient and RN notes reviewed Mode of arrival: ambulatory Limitations: no limitations History of Present Illness HPI narrative: 50-year-old female presents concern for dog bite to the left hand. Reports she was bit by her dog when trying to break up a fight between her dogs. Reports puncture wound to the palmar aspect of the hand. She reports swelling, pain. She denies fever, purulent drainage. Denies decrease strength, sensation, range of motion in the hand or digits. Reports she cleaned and dressed the wound. Reports she is not up-to-date on her tetanus vaccination. MD complaint: Dog bite Related Data Home Medications Medication Instructions Recorded Confirmed carvedilol 6.25 mg tablet 6.25 mg PO Q12H 01/01/21 06/05/21 duloxetine 60 mg capsule,delayed 60 mg PO DAILY 01/01/21 06/05/21 release sacubitril 24 mg-valsartan 26 mg 1 tablet PO BID 01/01/21 06/05/21 tablet fiber 2 tablet PO DAILY 02/25/21 04/03/21 furosemide 40 mg PO DAILY 02/25/21 06/05/21 pantoprazole [Protonix] 40 mg PO DAILY 02/25/21 06/05/21 hydroxyzine HCl 06/05/21 lamotrigine 06/05/21 Allergies Allergy/AdvReac Type Severity Reaction Status Date / Time potassium chloride Allergy Intermediate hives Verified 06/05/21 19:25 clarithromycin Allergy Unknown Rash Verified 06/05/21 19:25 codeine Allergy Unknown Vomiting Verified 06/05/21 19:25 doxycycline Allergy Unknown Rash Verified 06/05/21 19:25 erythromycin base Allergy Unknown Rash Verified 06/05/21 19:25 Review of Systems Review of Systems: CONSTITUTIONAL: Denies malaise, chills, sweats, or fever. SKIN: Reports puncture wound with swelling, redness to the palmar aspect of the left hand MUSCULOSKELETAL: Denies muscle skeletal pain, decreased urine, sensation, range of motion NEUROLOGIC: Denies numbness, weakness All systems reviewed & are unremarkable except as noted in HPI and below PMFSH Past Medical History Medical History (Updated 06/05/21 @ 19:50 by Darling S. Hilmes, [employer]YPING [employer] WORK[employer]) Anxiety Cardiomyopathy EF% on echo in was <15%, patient states more recent echo showed EF - 25%. CHF (congestive heart failure) Colon cancer screening (~04/2020) Cologuard negative Depression Gastroesophageal reflux disease Hyperlipidemia ICD (implantable cardioverter-defibrillator) in place placed 02/12/21 Left bundle branch block (normal spontaneous vaginal delivery) Tobacco dependence Surgical History Surgical History History of section Family History Family History Grandparent Family history of Parkinson's disease Family history of lung cancer Family history of malignant neoplasm of breast Cerebrovascular accident Family history of malignant neoplasm of breast in first degree relative Father Family history of heart disease in male family member before age 55 Family history of elevated blood lipids Family history of cardiovascular disease Mother Diabetes mellitus Other Family history of coronary artery disease Social History Social History (Updated 04/03/21 @ 13:56 by Sheryl Castillo [facility]) Social History: The patient lives in [place]. They have 2 grown children, both who are both students at [employer]. She smokes about 5 cigarettes per day but has previously smoked as much as 1.5 packs of cigarettes a day. No illicit substance use. Full code. Years smoked: 25 Smoking status: Current some day smoker Tobacco type: cigarettes Second hand tobacco smoke exposure: Yes Alcohol intake: never Substance use: never Substance use type: does not use Gender identity (if verbalized by the patient): Female Spiritual care concerns: No Comments At time of signature, agree with es
== END 2021-06-05 19:58 | disposition home or self-care (01) ==
PROVIDERS: Emergency Provider Nurse Practitioner; PCP Family Medicine
DX: S61.452A Open bite of left hand, initial encounter (principal); W54.0XXA Bitten by dog, initial encounter; Z23 Encounter for immunization; F17.210 Nicotine dependence, cigarettes, uncomplicated; F41.9 Anxiety disorder, unspecified; I50.9 Heart failure, unspecified; F32.9 Major depressive disorder, single episode, unspecified; K21.9 Gastro-esophageal reflux disease without esophagitis; Z95.810 Presence of automatic (implantable) cardiac defibrillator
CPT/HCPCS: 90471; 90715; 99213; G0463

== ENCOUNTER 2022-05-20 17:34 | Outpatient (CLI) | payer BC, SELFPAY ==
--- NOTE | ~2022-05-20 | MM_ITS ---
EXAMINATION: MM screening nadine BI w julianna HISTORY: Screening mammogram TECHNIQUE: Craniocaudal and mediolateral oblique 3-D tomosynthesis images were obtained and synthetic 2-D images were generated. CAD analysis was submitted and interpreted. COMPARISON: 11/21/2020, 10/06/2019, 05/14/2018, 05/06/2018 BREAST PARENCHYMAL COMPOSITION: The breasts are heterogeneously dense, which may obscure small masses . FINDINGS: There has been interval insertion of a left-sided pacemaker. There is no suspicious mass, c alcification, or architectural distortion to suggest malignancy in either breast. There has been no s uspicious interval change. IMPRESSION: 1. No mammographic evidence of malignancy. 2. Recommend routine screening mammography in one year. BI-RADS Category 1: Negative Reviewed, dictated and finalized at location A.
== END 2022-05-20 17:35 | disposition home or self-care (01) ==
PROVIDERS: PCP Family Medicine; Visit Provider Nurse Practitioner
DX: Z12.31 Encounter for screening mammogram for malignant neoplasm of breast (principal)
CPT/HCPCS: 77063; 77067

== ENCOUNTER 2022-12-27 14:24 | Emergency (ER) | payer OTHER, SELFPAY ==
[2022-12-27 14:34] VITALS: BP 147/68; PULSE 78; RESP 14; TEMP 36.6; O2SAT 100
[2022-12-27 14:37] VITALS: BP 147/68; PULSE 78; RESP 14; TEMP 36.6; O2SAT 100
--- NOTE | 2022-12-27 15:09 | ED.BACK ---
HPI - Back Pain/Injury General Chief Complaint: Back Pain/Injury Stated Complaint: Back Pain Time Seen by Provider: 12/27/22 15:09 Source: patient Mode of arrival: ambulatory Limitations: no limitations History of Present Illness HPI Narrative: patient is a 52-year-old female that presents with left scapular pain for 3 weeks. reports pain worsened yesterday. Patient has tried massage, stretching, Tylenol and ibuprofen, topical analgesic with no relief. patient denies any numbness tingling or weakness to left arm Related Data Home Medications Medication Instructions Recorded Confirmed duloxetine 60 mg capsule,delayed 60 mg PO DAILY 01/01/21 10/02/22 release furosemide 20 mg tablet 40 mg PO DAILY 02/25/21 10/02/22 lamotrigine 25 mg tablet 06/05/21 10/02/22 sacubitril 24 mg-valsartan 26 mg tablet 12/27/22 tablet (Entresto) Allergies Allergy/AdvReac Type Severity Reaction Status Date / Time potassium chloride Allergy Intermediate hives Verified 12/27/22 14:36 clarithromycin Allergy Unknown Rash Verified 12/27/22 14:36 codeine Allergy Unknown Vomiting Verified 12/27/22 14:36 doxycycline Allergy Unknown Rash Verified 12/27/22 14:36 erythromycin base Allergy Unknown Rash Verified 12/27/22 14:36 amoxicillin [From Augmentin] AdvReac Severe Vomiting Verified 12/27/22 14:36 clavulanic acid AdvReac Severe Vomiting Verified 12/27/22 14:36 [From Augmentin] Review of Systems Review of Systems: All systems reviewed & are unremarkable except as noted in HPI and below Constitutional: Constitutional: Denies body ache(s), Denies fever(s), Denies headache(s), Denies malaise and Denies weakness Eyes: Eyes: Denies loss of vision ENT: Denies otalgia, Denies headache(s), Denies nasal discharge, Denies sinus pain and Denies sore throat Cardiovascular: Cardiovascular: Denies chest pain, Denies irregular heart rhythm and Denies dyspnea Respiratory: Respiratory: Denies dyspnea Gastrointestinal: Gastrointestinal: Denies abdominal pain, Denies melena, Denies hematochezia, Denies diarrhea, Denies nausea and Denies vomiting Musculoskeletal: Musculoskeletal: Denies back pain, Denies myalgias, Denies arthralgias and Reports other ( left scapular pain) Integumentary/Breasts: Skin/Breast: Denies pruritus and Denies rash Neurologic: Denies headache(s), Denies loss of vision and Denies weakness Psychiatric: Psychiatric: Reports no additional psychiatric complaints PMFSH Past Medical History Medical History Anxiety Cardiomyopathy EF% on echo in was <15%, patient states more recent echo showed EF - 25%. CHF (congestive heart failure) Colon cancer screening (~04/2020) Cologuard negative Depression Gastroesophageal reflux disease Hyperlipidemia ICD (implantable cardioverter-defibrillator) in place placed 02/12/21 Left bundle branch block (normal spontaneous vaginal delivery) Tobacco dependence Surgical History Surgical History History of section Family History Family History Grandparent Family history of Parkinson's disease Family history of lung cancer Family history of malignant neoplasm of breast Cerebrovascular accident Family history of malignant neoplasm of breast in first degree relative Father Family history of heart disease in male family member before age 55 Family history of elevated blood lipids Family history of cardiovascular disease Mother Diabetes mellitus Other Family history of coronary artery disease Social History Social History (Updated 04/24/22 @ 10:34 by Ai Abarca [facility]) Social History: The patient lives in [place]. They have 2 grown children, both who are both students at [employer]. She smokes about 5 cigarettes per day but has previously smoked as much as 1.5 pa
== END 2022-12-27 15:25 | disposition home or self-care (01) ==
PROVIDERS: Emergency Provider Nurse Practitioner Family; PCP Family Medicine
DX: T14.8XXA Other injury of unspecified body region, initial encounter (principal); I50.9 Heart failure, unspecified; E78.5 Hyperlipidemia, unspecified; F17.210 Nicotine dependence, cigarettes, uncomplicated; X58.XXXA Exposure to other specified factors, initial encounter
CPT/HCPCS: 99213; G0463

== ENCOUNTER 2023-01-13 15:39 | Outpatient (CLI) | payer OTHER, SELFPAY ==
--- NOTE | ~2023-01-13 | XR_ITS ---
EXAMINATION:XR cervical spine 4-5V DATE: 01/13/2023 15:59 INDICATION: Neck pain TECHNIQUE: AP, lateral, lateral swimmers and odontoid views of the cervical spine are provided. COMPARISON: None FINDINGS: There is straightening of the cervical spine which can be positional or due to muscular spa sm. Alignment is normal. There is multilevel mild to moderate facet and uncovertebral joint osteoarth ritis. The odontoid process is intact. No fracture is identified. The vertebral body heights are norm al. There is moderate loss of intervertebral disc space height at C5-C6 and mild loss of disc space h eight throughout the remainder of the cervical spine. Prevertebral soft tissues are normal. A partial ly imaged dual-lead pacemaker of the left chest wall is noted. IMPRESSION: 1. [id number] multilevel cervical spondylosis. Reviewed, dictated and finalized at location B. IMPRESSION: 1. [id number] multilevel cervical spondylosis.
== END 2023-01-13 15:40 | disposition home or self-care (01) ==
PROVIDERS: PCP Family Medicine; Visit Provider Physician Assistant
DX: M47.812 Spondylosis without myelopathy or radiculopathy, cervical region (principal)
CPT/HCPCS: 72050

== ENCOUNTER 2023-08-03 15:12 | Outpatient (CLI) | payer OTHER, SELFPAY ==
--- NOTE | ~2023-08-03 | MM_ITS ---
EXAMINATION: MM screening nadine BI w julianna HISTORY: Screening mammogram TECHNIQUE: Craniocaudal and mediolateral oblique 3-D tomosynthesis images were obtained and synthetic 2-D images were generated. CAD analysis was submitted and interpreted. COMPARISON: 05/20/2022, 11/21/2020 bilateral screening mammogram examinations BREAST PARENCHYMAL COMPOSITION: The breasts are heterogeneously dense, which may obscure small masses . FINDINGS: Left-sided pacemaker device. There is no evidence of suspicious mass, calcification, or arc hitectural distortion to suggest malignancy in either breast. There has been no suspicious interval c hange. IMPRESSION: 1. No mammographic evidence of malignancy. 2. Recommend routine screening mammography in one year. BI-RADS Category 1: Negative Reviewed, dictated and finalized at location A.
== END 2023-08-03 15:13 | disposition home or self-care (01) ==
LOC: ANHIMG 15:14
PROVIDERS: PCP Family Medicine; Visit Provider Obstetrics & Gynecology Gynecology
DX: Z12.31 Encounter for screening mammogram for malignant neoplasm of breast (principal)
CPT/HCPCS: 77063; 77067

== ENCOUNTER 2024-10-20 15:09 | Outpatient (CLI) | payer OTHER, SELFPAY ==
--- NOTE | ~2024-10-20 | DEXA_ITS ---
Bone Density Report Name: MARCIANO ORTEZ Age: 54 Sex: Female Ethnicity: White Date of : 1970 Indication: postmenopausal; screening for osteoporosis; Referring Provider: Tammy Mo Study: Bone densitometry was performed. Exam Date: October 20, 2024 Accession number: [id number] Bone Density: Region BMD T-score Z-score Classification AP Spine(L1-L4) 1.071 0.2 1.3 Normal Femoral Neck (Left) 0.722 -1.1 -0.1 Osteopenia Total Hip (Left) 0.981 0.3 1.0 Normal Femoral Neck (Right) 0.704 -1.3 -0.2 Osteopenia Total Hip (Right) 0.923 -0.2 0.5 Normal Femoral Neck Mean 0.713 -1.2 -0.2 Osteopenia Total Hip Mean 0.952 0.1 0.8 Normal World Health Organization criteria for BMD impression classify patients as: Normal (T-score at or above -1.0), Osteopenia (T-score between -1.0 and -2.5), or Osteoporosis (T-score at or below -2.5). 10-year Fracture Risk(1): Major Osteoporotic Fracture 6.3% Hip Fracture 0.7% Reported Risk Factors: [place] (), Neck BMD=0.704, BMI=26.1, smoking (1) FRAX(R) Version 3.08. Fracture probability calculated for an untreated patient. Fracture probability may be lower if the patient has received treatment. Clinical Information Provided by Patient: Smokes Patient maximum height was 51.6 Menopause Age: 54 Drinks caffeinated beverages Onset of menses at age 13 Number of children 2 Missed period for more than 6 months in a row Impression: The patient has low bone mass, based on the Right Femoral Neck T-score. The patient has risk factors, including: smoking. Discussion: BONE DENSITY IS LOW AT ONE OR MORE SKELETAL SITES. This patient's lowest T-score is low at one or more skeletal sites. It meets the World Health Organization's (WHO) criteria for ?low bone mass? (T-score between -1.0 and -2.5). The patient's 10-year risk of fracture as calculated by FRAX is less than the threshold where pharmacological therapy is recommended by the National Osteoporosis Foundation (NOF). However, all treatment decisions require clinical judgment and consideration of individual patient factors, including patient preferences, comorbidities, previous drug use, risk factors not captured in the FRAX model (e.g., frailty, falls, vitamin D deficiency, increased bone turnover, interval significant decline in bone density) and possible under or overestimation of fracture risk by FRAX. The patient should follow a healthful lifestyle (good nutrition with adequate calcium and vitamin D, and appropriate weight-bearing exercise). Follow-Up: Consider repeating this study in 2 to 3 years to reassess this patient's status, or sooner if there is some new clinical indication. Reported by: SWETA on 10/20/2024 3:28:00 PM. Reviewed, dictated and finalized at location ABranden SANABRIA
== END 2024-10-20 15:10 | disposition home or self-care (01) ==
PROVIDERS: PCP Family Medicine; Visit Provider Obstetrics & Gynecology Gynecology
DX: Z78.0 Asymptomatic menopausal state (principal); M85.89 Other specified disorders of bone density and structure, multiple sites
CPT/HCPCS: 77080

== ENCOUNTER 2025-03-22 13:41 | Outpatient (CLI) | payer OTHER, SELFPAY ==
--- NOTE | ~2025-03-22 | XR_ITS ---
Clinical Indication: Wheezing PA and lateral views of the chest: Comparison: 10/24/2020 Findings: The lungs are clear, without evidence of focal consolidation or pleural effusion. Cardiome diastinal silhouette is within normal limits, with pacemaker device. Bones and soft tissues are unrem arkable. Impression: Clear lungs. Pacemaker device. Reviewed, dictated and finalized at location . Impression: Clear lungs. Pacemaker device.
--- OUTSIDE RECORDS SUMMARY | 2025-03-22 15:59 | XMS_ITS | Clinical Summary ---
Author Organization [facility] Address [address] [place] [address] Phone Care Team Providers Care Film Spooler Name Role Phone Alicia Katz MD Primary Care Provider [phone] Allergies Active Allergy Reactions Criticality Noted Date Comments Amoxicillin-Pot Clavulanate Rash Low 12/03/19 22 Cefadroxil Nausea and Vomiting Low 12/03/2021 Ciprofloxacin Rash Low 12/03/2021 Clindamycin Nausea and Vomiting Low 12/03/2021 Codeine Rash,Nausea and Vomiting Medium 08/27/2018 Erythromycin Rash Medium 08/27/2018 Hydroxyzine Rash Low 12/03/2021 Potassium Chloride Rash Low 03/22/2021 Medications DULoxetine (CYMBALTA) 60 mg Capsule, Delayed Release(E.C.) TAKE 1 CAPSULE BY MOUTH EVERY DAY DIRECTED 0 Active fexofenadine-ps eudoephedrine SR 24 hour (Yudy-D 24 Hour) 180-240 mg tablet Take 1 Tablet by mouth. 9 Active pantoprazole (PROTONIX) 40 mg Tablet, Delayed Release (E.C.) 9 Active fluticasone propionate (FLONASE) 50 mcg/spray [place], Suspension nasal inhaler Administer 1 [place] in each nostril. Active lamoTRIgine 25 mg tablet Take 25 mg by mouth 2 times daily. Active sacubitriL-vals jus (Entresto) 24-26 mg Tablet take 1 tablet by mouth twice a day 60 Tablet 10 4 Active furosemide (LASIX) 40 mg tablet take 1 tablet by mouth every day 100 Tablet 2 4 Active carvediloL (COREG) 6.25 mg tablet TAKE 1 TABLET BY MOUTH TWICE A DAY 180 Tablet 2 4 Active Active Problems Patient Care Coordination No te Formatting of this note migh t be different from the original. KRISTIN-KAYLEE HAUSER MD Problem Noted Date Diagnosed Date Chronic combined systolic and diastolic CHF, [facility] A class 1 11/27/2020 Nonrheumatic mitral valve regurgitation 11/27/19 21 Nonischemic dilated cardiomyopathy 11/27/2020 Encounters Date Type Department Care Team Description 03/15/2025 10:00 AM CDT Procedure visit [facility] EP AT [address] [place] [address] Nonischemic dilated cardiomyopathy (CMS/HCC) (Primary Dx); ICD (implantable cardioverter-defibril lator) in place 03/14/2025 External Device Data [facility] ABSTRACTION Provider, Abstract 03/02/2025 External Device Data [facility] ABSTRACTION Provider, Abstract 03/01/2025 External Device Data [facility] ABSTRACTION Provider, Abstract 02/28/2025 External Device Data [facility] ABSTRACTION Provider, Abstract 02/14/2025 11:45 AM CDT Procedure visit [facility] EP AT [address] [place] [address] Nonischemic dilated cardiomyopathy (CMS/HCC) (Primary Dx); ICD (implantable cardioverter-defibril lator) in place 02/02/2025 Chart Note [facility] EP AT [address] [place] [address] Alexsandra De Santiago MD ICD CHECK (Device Reset Alert) 12/28/2024 External Device Data [facility] ABSTRACTION Provider, Abstract from Last 3 Months Immunizations Immunization Administration Dates Next Due (PFIZER)(12 YR UP) COVID-19 VACCINE - EMERGENCY USE AUTHORIZATION, MRNA, [id number]) 30 MCG/0.3 ML IM SUSP 11/21/2020,10/31/2020 Influenza Seasonal Unspecified Formulation IM Family History Medical History Relation Name Comments No Known Problems Brother Heart Disease Father Heart Surgery Father PCI High Cholesterol Father Cancer Mother bladder Diabetes Mother Relation Name Status Comments Brother Alive Father Alive Mother Alive Social History Tobacco Use Types Packs/Day Years Used Date Smoking Tobacco: Every Day Cigarettes 1 25 Tobacco Cessation:Ready to Q uit: Not Asked; Counseling Given: Not Answered Alcohol Use Standard Drinks/Week Comments Never 0 (1 standard drink = 0.6 oz pur e alcohol) Comments Unknown Sex and Gender Information Value Date Recorded Sex Assigned at Not on file Legal Sex Female 2:31 PM 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 Gender Identity Not on file Sexual Orientation Not on file Last Filed Vital Signs Vital Sign Reading Time Taken Comments Blood Pressure 128/70 05/31/2024 3:34 PM CDT Pulse 90 05/31/2024 3:34 PM CDT Temperature 36.3 C (97.3 F) 12/03/2021 3:30 PM CREMATORY OPERATOR Respiratory Rate 19 02/12/2021 5:45 PM CDT Oxygen Saturation 93% 05/31/2024 3:34 PM CDT Inhaled Oxygen Concentration - - Weight 65.3 kg (144 lb) 05/31/2024 3:34 PM CDT Height 154.9 cm (5' 1) 05/31/2024 3:34 PM CDT Body Mass Index 27.21 05/31/2024 3:34 PM CDT Plan of Treatment Upcoming Encounters Date Type Department Care Team (Late st Contact Info) Description 05/30/2025 3:00 PM CDT Office Visit [facility] Heart [facility] - [facility] [address] [place] [address] Kyalee Hauser MD [address] [place] [address] [address] [place] [address] 06/27/2025 8:00 AM CDT Procedure visit [facility] EP AT [address] [place] [address] Health Maintenance Due Date Last Done Comments Pre-Diabetes and Diabetes Screening 1969 HEPATITIS B VACCINES (1 of 3 - 19+ 3-dose series) 1988 HPV/Cotest (21-29) 1990 DTAP/TDAP/TD VACCINES (2 - T d or Tdap) 1998 1988 CERVICAL CANCER SCREENING 1999 HPV/Cotest (30-65) 1999 PAP SMEAR 1999 BREAST CANCER SCREENING 2009 COLORECTAL SCREENING 2014 Colorectal Cancer Screening 2014 FIT-DNA Q 3 years 2014 FIT/FOBT Q 1 year 2014 Flex Sig/CT Colonography Q 5 years 2014 Lung Cancer Screening 2019 ZOSTER VACCINE (1 of 2) 2019 INFLUENZA VACCINE (#1) 2024 , 08/12/2020, 07/14/2020, Additional history exists COVID-19 Vaccine (2023-2 5 season) 2024 10/09/2021, 11/21/2020, 10/31/2020 Medical Devices Implanted Type Area Driller Brake Lining Device Identifier Shelf Expiration Date Model / Serial / Lot Defib Icd [place] [address] Mri Df4 Dual Chmbr Surescan [id number] - [id number] Implanted:Qty : 1 on 02/12/2021 by Alexsandra De Santiago MD at [facility] Defibrillator Left: Chest [employer]TR[employer]- CARD RHYTHM MGMT 06/25/2022 [id number] / [id number] / [id number] Description:RA PWAVE 2.3 - 7 22 IMPEDANCE - CAP THRESH 1.0V@0.4 RV R WAVE 12.9 - 551 IMP - CAP 0.7V@0.4 RV COIL 71 OHMS Lead Sprint Quattro Secure-S 55cm [id number] - Csc - [id number] Implanted:Qty : 1 on 02/12/2021 by Alexsandra De Santiago MD at [facility] Lead Left: Chest [employer]- CRM - BULK BUY 10/31/2022 [id number] / [id number] / Lead Pacing Capsure Fix Novus 45cm [id number] - Csc - [id number] Implanted:Qty : 1 on 02/12/2021 by Alexsandra De Santiago MD at [facility] Lead Left: Chest [employer]- CRM - BULK BUY 07/04/2021 [id number] / [id number] / Procedures Procedure Name Priority Date/Time Associated Diagnosis Comments MA PRGRMG EVAL IMPLANTABLE IN PRSN DUAL LEAD DFB Routine 03/15/2025 10:20 AM CDT Nonischemic dilated cardiomyopathy (CMS/HCC) ICD (implantable cardioverter-defibril lator) in place MA REM INTERROG PM/LDLS PM/IDS <90 D TECH REVIEW Routine 02/13/2025 8:25 PM CDT Nonischemic dilated cardiomyopathy (CMS/HCC) ICD (implantable cardioverter-defibril lator) in place MA INTERROGATION EVAL REMOTE </90 D 1/2/SET UP MECHANIC CROWN ASSEMBLY MACHINE LD DFB Routine 02/13/2025 8:25 PM CDT Nonischemic dilated cardiomyopathy (CMS/HCC) ICD (implantable cardioverter-defibril lator) in place from Last 3 Months Results * MA PRGRMG EVAL IMPLANTABLE IN PRSN DUAL LEAD DFB (03/15/2025 10:20 AM CDT) 03/15/2025 10:2 0 AM CDT Narrative INTERFACE SYSTEM - 03/15/2025 12:24 PM CDT Alexsandra De Santiago MD 03/17/2025 3:36 PM ICD interrogation: Appropriate dual chamber device function Battery: 9.5 years Presenting: AsVs Underlying: NSR Ap 0.4% Advertising Photographer <0.1% Since last remote 02/14/25 No arrhythmias noted HV Therapy pathways changed to B>AX per Medtronic guidelines Per epic, pt takes coreg Scheduled for remote in 3 months ADDENDUM: Device interrogation reviewed Agree with above Alexsandra De Santiago MD, [facility] 03/17/2025 3:36 PM us Alexsandra De Santiago MD CARDIAC SERVICES ORDERABLES Edited Result - Final INTERFACE SYSTEM Refer to clinic/hospital department * MA INTERROGATION EVAL REMOTE </90 D 1/2/SET UP MECHANIC CROWN ASSEMBLY MACHINE LD DFB, MA REM INTERROG PM/LDLS PM/IDS <90 D TECHREVIEW (02/13/2025 8:25 PM CDT) 02/13/2025 8:25 PM CDT Narrative INTERFACE SYSTEM - 02/14/2025 8:29 AM CDT Alexsandra De Santiago MD 02/15/2025 4:33 PM Remote Carelink Transmission Appropriate dual chamber ICD function. 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 Per [employer], Patient takes Coreg. Results sent via [employer]chedPic ADDENDUM: Device interrogation reviewed Agree with above Alexsandra De Santiago MD, [facility] 02/15/2025 4:33 PM us Alexsandra De Santiago MD CARDIAC SERVICES ORDERABLES Edited Result - Final INTERFACE SYSTEM Refer to clinic/hospital department from Last 3 Months Insurance [employer] OPT[employer] PPO [id number] RX [facility] Commercial Advance Directives For more information, please contact: [phone] * Full Code (Latest Code Status on File) Date Activated Date Inactivated Comments 02/12/2021 11:53 AM 02/12/2021 8:21 PM Care Teams Film Spooler Relationship Specialty Start Date End Date Alicia Katz MD [address] [place] [id number] PCP - General Family Practice 11/27/20
--- OUTSIDE RECORDS SUMMARY | 2025-03-22 15:59 | XMS_ITS | Encounter Summary ---
Author Organization [facility] Address [address] [place] [address] Care Team Providers Care Wood Casket Maker Name Role Phone Carlitos Marques MD Primary Care Provider [phone] Alicia Katz MD Primary Care Provider [phone] Encounter Details Date Type Department Care Team (Late st Contact Info) Description 05/03/2018 Lab Requisition [facility] Care DermPath Lab [address] [facility] [place] [address] Yenny Raya MD [address] [facility] [address] [place] [address] Social History Tobacco Use Types Packs/Day Years Used Date Smoking Tobacco: Never Assessed Comments Unknown Sex and Gender Information Value Date Recorded Sex Assigned at Not on file 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 Gender Identity Not on file Sexual Orientation Not on file documented as of this encounter Plan of Treatment Not on file documented as of this encounter Procedures Procedure Name Priority Date/Time Associated Diagnosis Comments DERMATOPATH TECHNICAL REPORT Routine 04/30/2018 12:00 AM CDT documented in this encounter Results * DERMATOPATH TECHNICAL REPORT (04/30/2018 12:00 AM CDT) Case Report Dermatopathology Report Case: [id number] Authorizing Provider: Yenny Raya MD Collected: 04/30/2018 12:00 AM Pathologist: Zenaida Yusuf MD Received: 05/03/2018 06:18 AM Specimen: Skin, right alonso 11:21 AM CDT DERMATOPATHOLOGY LABORATORY Clinical History SK vs MM. Check margins. 11:21 AM CDT DERMATOPATHOLOGY LABORATORY Gross Description Specimen A: Received is one formalin filled container labeled with the patient's name and designated right alonso. The specimen consists of a shave biopsy measuring 4m5d6yr. Jar 0. [facility] Dermatopathology Laboratory performed the technical component only. 11:21 AM CDT DERMATOPATHOLOGY LABORATORY Embedded Images 11:21 AM CDT DERMATOPATHOLOGY LABORATORY DISCLAIMER An external and internal positive and negative controls are appropriate for the histochemical, immunohistochemical and immunofluorescence stain(s) in this case (if any), except where stated explicitly. The performance characteristics of the stain(s) cited in this report were developed and its performance characteristic determined by the Dermatopathology Laboratory at [facility]. These tests need not be, and therefore are not, approved by the [place] Food and Drug Administration. The tests are used for clinical purposes. 11:21 AM T DERMATOPATHOLOGY LABORATORY at 1121 CDT Pathology/Cytolog y TISSUE SPECIMEN FROM SKIN / Unknown 04/30/2018 05/03/2018 6:18 AM CDT Yenny Raya MD LAB - PATHOLOGY/CYTOLOGY ORD ERABLES Final Result DERMATOPATHOLOGY LABORATORY [facility] - Department of Dermatology [address] [place] [address] 5th Floor Lab [address] [phone] documented in this encounter Visit Diagnoses Not on filedocumented in this encounter Care Teams Wood Casket Maker Relationship Specialty Start Date End Date Carlitos Marques MD [address] [place] [address] PCP - General Internal Medicine 11/22/16 02/09/25 Alicia Katz MD [address] [place] [address] PCP - General Family Medicine 02/10/25 documented as of this encounter
--- OUTSIDE RECORDS SUMMARY | 2025-03-22 15:59 | XMS_ITS | Continuity of Care Document ---
Author Name [facility] Organization [facility] Care Team Providers Care Database Technician Name Role Phone [facility] Unavailable Unavailable Social History Combined list of available smoking, tobacco, and other social history from Department of Defense and Veterans Affairs facilities. Social History Type Response Date Comment Sourc e This section is an empty social history section. [facility]
--- OUTSIDE RECORDS SUMMARY | 2025-03-22 15:59 | XMS_ITS | Referral Summary ---
Author Organization [facility] Address [address] [place] [address] Care Team Providers Care City Solicitor Name Role Phone Alicia Katz MD Primary Care Provider [phone] Allergies Active Allergy Reactions Criticality Noted Date Comments Amoxicillin Rash Medium 05/06/2023 Amoxicillin-Pot Clavulanate Rash Medium 12/03/19 Cefadroxil Nausea & Vomiting,Na usea And Vomiting Low 12/03/2021 Ciprofloxacin Nausea & Vomiting,Rash,Vomiting Medium 12/03/2021 Clindamycin Nausea & Vomiting,Na usea And Vomiting Low 12/03/2021 Codeine Rash,Vomiting Medium 08/27/2018 Erythromycin Rash Medium 08/27/2018 Hydroxyzine Rash Medium 12/03/2021 Potassium Chloride Rash Medium 03/22/2021 Medications bethanechol (URECHOLINE) 25 mg tablet daily 0 9 Active REGAN-D 24 HOUR 180-240 mg per 24 hr tablet Take 1 tablet by mouth daily [address] (PROTONIX) 40 mg EC tablet 9 Active nicotine (NICODERM CQ) 21 mg APPLY 1 PATCH DAILY [address] (CYMBALTA) 60 mg capsule TAKE 1 CAPSULE BY MOUTH EVERY DAY DIRECTED 0 9 Active sacubitriL-valsart an (ENTRESTO) 24-26 mg tabletIndications: chronic heart failure Take 1 tablet by mouth 2 (two) times a day 180 tablet 1 Active fluticasone propionate (Allergy Relief, fluticasone,) 50 mcg/actuation nasal spray Administer 1 spray into each nostril daily Active carvediloL (COREG) 6.25 mg tabletIndications: Nonischemic cardiomyopathy (HCC) TAKE 1 TABLET BY MOUTH TWICE A DAY WITH MEALS 180 tablet 1 Active lamoTRIgine (LaMICtal) 25 mg tablet TAKE 3 TABLETS BY MOUTH EVERY DAY FOR 90 DAYS 3 Active furosemide (LASIX) 40 mg tablet Take 1 tablet (40 mg total) by mouth daily 3 Active simvastatin (ZOCOR) 20 mg tablet Take 1 tablet (20 mg total) by mouth daily 3 Active traZODone (DESYREL) 50 mg tablet TAKE 0.5 TO 1 TABLET AT BEDTIME NEEDED 3 Active Active Problems Problem Noted Date Diagnosed Date Chronic combined systolic and diastolic CHF, [facility] A class 1 11/27/2020 Nonischemic dilated cardiomyopathy 11/27/2020 Nonrheumatic mitral valve regurgitation 11/27/19 21 Immunizations Immunization Administration Dates Next Due Flucelvax Influenza Quad 07/14/2020,09/23/2019 Influenza, Quadrivalent, Merlyn l Culture-based MDCK, Antibiotic Free, Intramuscular 10/18/2018 Influenza, Trivalent, IM (MDV) 08/12/2020 Influenza, Unspecified 07/21/2012 MMR 11/22/2016 Pfizer SARS-CoV-2 Monovalent Vaccination (12+ Yrs) PURPLE 11/21/2020,11/01/2020 Social History Tobacco Use Types Packs/Day Years Used Date Smoking Tobacco: Every Day Cigarettes 1 37.4 Started: 10/12/1987 Smokeless Tobacco: Never Tobacco Cessation:Ready to Q uit: Yes; Counseling Given: Not Answered Alcohol Use Standard Drinks/Week Comments Yes 0 (1 standard drink = 0.6 oz pur e alcohol) AUDIT-C Answer Date Recorded Frequency of Alcohol Consumption Monthly or less 11/23/2020 Average Number of Drinks Not on file 021 Frequency of Binge Drinking Not on file 11/12 Personal Safety Answer Date Recorded Getting School Help Needed Not on file 09/29 Comments Unknown Sex and Gender Information Value Date Recorded Sex Assigned at Not on file Legal Sex Female 9:54 AM 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 Gender Identity Not on file Sexual Orientation Not on file Last Filed Vital Signs Vital Sign Reading Time Taken Comments Blood Pressure 120/70 11/23/2020 8:57 AM 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 Pulse 98 11/23/2020 8:57 AM 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 Temperature - - Respiratory Rate - - Oxygen Saturation 98% 11/23/2020 8:57 AM 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 Inhaled Oxygen Concentration - - Weight 65.8 kg (145 lb) 01/21/2023 11:49 AM CDT Height 157.5 cm (5' 2) 01/21/2023 11:49 AM CDT Body Mass Index 26.52 01/21/2023 11:49 AM CDT Plan of Treatment Not on file Insurance [facility] [employer] P[employer] [facility] HMO/PPO Address: [address] [address] [place] [address] [facility] HMO/PPO Address: [address] [address] [place] [address] Care Teams City Solicitor Relationship Specialty Start Date End Date Alicia Katz MD PCP - General Family Medicine 10/26/20
--- OUTSIDE RECORDS SUMMARY | 2025-03-22 15:59 | XMS_ITS | Patient Health Record ---
Author Organization [facility] [place] Address [address] [place] [address] Care Team Providers Care Credentialing Analyst Name Role Phone Ramos Goode Unavailable [phone] Allergies Allergen (clinical drug ingredient) Drug/Non Drug Allergy documented on EMR Reaction Allergy Type Onset Date Status erythromycin Erythromycin Base Unknown Drug Allergy 2023 Active potassium chloride Potassium Chloride Unknown Drug Allergy 01/14/2024 Active codeine Codeine Unknown Drug Allergy 01/14/2024 Active Reason For Referral No Information Medications Medication SIG (Take, Route, Frequency, Duration) Notes Start Date End Date Status Furosemide 40 MG Oral 01/14/2024 Ac tive Simvastatin 20 MG Oral 01/14/2024 A ctive Montelukast Sodium 10 MG Oral 01/14/2024 Active Carvedilol 6.25 MG Oral 01/14/2024 Active Pantoprazole Sodium 40 MG Oral 01/14/2024 Active Doxycycline Hyclate 100 MG Oral 01/14/2024 Active Entresto 24-26 MG Oral 01/14/2024 A ctive traZODone HCl 50 MG TAKE 1/2 - 1 TABLET BY MOUTH AT BEDTIME FOR 90 DAYS for 90 Active DULoxetine HCl 60 MG 1 capsule Oral Once a day for 90 days Active Bethanechol Chloride 25 MG Oral 01/14/2024 Active lamoTRIgine 25 MG 3 tablets Oral once a day for 90 days Active Yudy-D Allergy & Congestion 180-240 MG Oral 01/14/2024 Active FLUCELVAX QUAD 2384-9717 60 mcg (15 mcg x 4)/0.5 mL INTRAMUSCULAR *Reorder from Lamiecco for eRx and Interaction Alerts* 01/14/2024 Active Immunizations Vaccine Route Administration Date Status Comme nts Tdap Unknown 1988 Administered Pfizer Biontech Covid-19 Vac cine 2nd dose Unknown 10/31/2020 Administered Pfizer Biontech Covid-19 Vac cine 2nd dose Unknown 11/21/2020 Administered Pfizer Biontech Covid-19 Vac cine 2nd dose Unknown 10/09/2021 Administered MMR Unknown 11/22/2016 Administered Influenza, unspecified formulation Unknown 07/21/2012 A dministered Influenza, unspecified formulation Unknown 06/12/2018 A dministered Influenza, seasonal, injecta ble, preservative free, 3 yrs and above Unknown 07/21/2012 Administered Influenza, seasonal, injecta ble, preservative free, 3 yrs and above Unknown 08/03/2012 Administered Influenza, seasonal, injecta ble, preservative free, 3 yrs and above Unknown 10/18/2018 Administered Influenza, seasonal, injecta ble, preservative free, 3 yrs and above Unknown 07/14/2020 Administered Influenza, injectable, MDCK, preservative free Unknown 10/18/2018 Administered Influenza, injectable, MDCK, preservative free Unknown 09/23/2019 Administered Influenza, injectable, MDCK, preservative free Unknown 07/14/2020 Administered Influenza, high dose seasonal Unknown 07/21/2012 Admini stered Social History Tobacco Use: Social History Observation Description Date Details (start date - stop date) Current Smoker 07/15/1988 - NA Sex Assigned At : Social History Observation Description Sex Assigned At Female Tobacco Control (Standard) Question Answer Notes Tobacco use: Current smoker When did you start smoking? 07/15/1988 How often do you smoke cigarettes? Every day How many cigarettes a day do you smoke? 11-20 How soon after you wake up do you smoke your fir st cigarette? 6-30 minutes Are you interested in quitting? Ready to quit Problems Problem Type SNOMED Code ICD Code Onset Dates Problem Status W/U Status Risk Notes Problem Tobacco user (335444857) Nicotine dependence, cigarettes, uncomplicated (F17.210) Active confirmed Problem Mild recurrent major depression (92894136) Major depressive disorder, recurrent, mild (F33.0) Active confirmed Problem Generalized anxiety disorder (12251053) Generalized anxiety disorder (F41.1) Active confirmed Problem Insomnia (478414756) Other insomnia (G47.09) Active confirmed Vital Signs Heart Rate 70 /min 07/15/2024 Height-cm 154.94 cm 01/13/2025 Blood pressure diastolic 68 mm Hg 07/15/2024 Weight-kg 63.96 kg 07/15/2024 Height 61.00 in 01/13/2025 Blood pressure systolic 132 mm Hg 07/15/2024 Weight 141 lbs 07/15/2024 BMI 26.64 kg/m2 07/15/2024 Encounters Encounter Location Date Provider Diagnosis [facility] [place] [address] [address] [facility] [address] [facility] [address] [place] [address] 07/15/2024 Ramos Goode Major depressive disorder, recurrent, mild F33.0 ; Generalized anxiety disorder F41.1 ; Other insomnia G47.09 and Nicotine dependence, cigarettes, uncomplicated F17.210 [facility] [place] [address] [place] [address] 01/13/2025 Ramos Goode Major depressive disorder, recurrent, mild F33.0 ; Generalized anxiety disorder F41.1 ; Other insomnia G47.09 ; Nicotine dependence, cigarettes, uncomplicated F17.210 and Nicotine use Z72.0 Assessments Encounter Date Diagnosis (ICD Code) Assessment Notes Treatment Notes Treatment Clinical Notes Section Notes 07/15/2024 Major depressive disorder, recurrent, mild (ICD-10 - F33.0) 1. Major Depressive Disorder: - Patient reports stable mood on current medications. Plan: - Continue Cymbalta (duloxetine) 60 mg daily. - Continue Lamotrigine 75 mg daily. 2. Anxiety: - Patient reports low-level constant anxiety but not interfering with daily activities. Plan: - Continue monitoring and managing anxiety with current medications (Cymbalta). 3. Insomnia: - Patient reports infrequent use of Trazodone and has enough supply. Plan: - No refill needed at this time. 4. Smoking Cessation: - Patient reports reduced smoking and occasional use of nicotine patches. Plan: - Refill nicotine patches as needed. - Encourage continued efforts to quit smoking and consider additional support if needed. Follow-up: - Schedule a follow-up appointment in 6 months to monitor progress and adjust treatment as needed. - Encourage the patient to contact the clinic if any concerns or changes in symptoms arise before the next appointment. 07/15/2024 Generalized anxiety disorder (ICD-10 - F41.1) 1. Major Depressive Disorder: - Patient reports stable mood on current medications. Plan: - Continue Cymbalta (duloxetine) 60 mg daily. - Continue Lamotrigine 75 mg daily. 2. Anxiety: - Patient reports low-level constant anxiety but not interfering with daily activities. Plan: - Continue monitoring and managing anxiety with current medications (Cymbalta). 3. Insomnia: - Patient reports infrequent use of Trazodone and has enough supply. Plan: - No refill needed at this time. 4. Smoking Cessation: - Patient reports reduced smoking and occasional use of nicotine patches. Plan: - Refill nicotine patches as needed. - Encourage continued efforts to quit smoking and consider additional support if needed. Follow-up: - Schedule a follow-up appointment in 6 months to monitor progress and adjust treatment as needed. - Encourage the patient to contact the clinic if any concerns or changes in symptoms arise before the next appointment. 01/13/2025 Major depressive disorder, recurrent, mild (ICD-10 - F33.0) 01/13/2025 Generalized anxiety disorder (ICD-10 - F41.1) 07/15/2024 Other insomnia (ICD-10 - G47.09) trazodone prn 1. Major Depressive Disorder: - Patient reports stable mood on current medications. Plan: - Continue Cymbalta (duloxetine) 60 mg daily. - Continue Lamotrigine 75 mg daily. 2. Anxiety: - Patient reports low-level constant anxiety but not interfering with daily activities. Plan: - Continue monitoring and managing anxiety with current medications (Cymbalta). 3. Insomnia: - Patient reports infrequent use of Trazodone and has enough supply. Plan: - No refill needed at this time. 4. Smoking Cessation: - Patient reports reduced smoking and occasional use of nicotine patches. Plan: - Refill nicotine patches as needed. - Encourage continued efforts to quit smoking and consider additional support if needed. Follow-up: - Schedule a follow-up appointment in 6 months to monitor progress and adjust treatment as needed. - Encourage the patient to contact the clinic if any concerns or changes in symptoms arise before the next appointment. 01/13/2025 Other insomnia (ICD-10 - G47.09) trazodone prn 07/15/2024 Nicotine dependence, cigarettes, uncomplicated (ICD-10 - F17.210) 1. Major Depressive Disorder: - Patient reports stable mood on current medications. Plan: - Continue Cymbalta (duloxetine) 60 mg daily. - Continue Lamotrigine 75 mg daily. 2. Anxiety: - Patient reports low-level constant anxiety but not interfering with daily activities. Plan: - Continue monitoring and managing anxiety with current medications (Cymbalta). 3. Insomnia: - Patient reports infrequent use of Trazodone and has enough supply. Plan: - No refill needed at this time. 4. Smoking Cessation: - Patient reports reduced smoking and occasional use of nicotine patches. Plan: - Refill nicotine patches as needed. - Encourage continued efforts to quit smoking and consider additional support if needed. Follow-up: - Schedule a follow-up appointment in 6 months to monitor progress and adjust treatment as needed. - Encourage the patient to contact the clinic if any concerns or changes in symptoms arise before the next appointment. 01/13/2025 Nicotine dependence, cigarettes, uncomplicated (ICD-10 - F17.210) 01/13/2025 Nicotine use (ICD-10 - Z72.0) 01/13/2025 Dariana Rosales is a patient with a history of depression and anxiety, currently experiencing increased anxiety symptoms despite ongoing medication management. Anxiety Assessment: Patient reports experiencing constant, unexplained anxiety and feeling edgy. This represents an increase in anxiety symptoms compared to the previous visit in July. Sleep is reported as insufficient, though this is attributed to the patient's own choices rather than insomnia. The anxiety appears to be manageable but persistent. Plan: - Continue duloxetine 60 mg daily - Continue lamotrigine 75 mg daily - Monitor anxiety symptoms and their impact on daily functioning - Encourage adequate sleep hygiene - Follow up in 6 months Nicotine Dependence Assessment: Patient continues to smoke cigarettes despite previous attempts to quit using nicotine patches. Reports ambivalence about quitting, acknowledging the need to quit but lacking the desire. The patient expresses concern that thoughts about smoking may be contributing to anxiety. Previous attempts with Wellbutrin were unsuccessful. Plan: - Patient to attempt reducing cigarette consumption to 7 per day for one week - Discussed potential future use of varenicline (Chantix) if current reduction plan is unsuccessful - Educated on varenicline: typical 3-month course, potential for 3-month extension, daily dosing with initial titration, and possible side effects including increased depression, suicidal thoughts, nausea, and vivid dreams - Continue to monitor and address smoking cessation efforts at follow-up visits Depression Assessment: Patient reports that depressive symptoms, if present, are brief and not severe. Current medication regimen appears to be effective in managing depression. Plan: - Continue current medication regimen: duloxetine 60 mg daily and lamotrigine 75 mg daily - Monitor for any changes in depressive symptoms - Follow up in 6 months the note is transcribed using speech recognition software. It is a reflection of a visit with the patient. It might have some inaccuracy, including medication names and transcribing errors, though efforts have been made to correct them. Plan Of Treatment Next Appt Details Provider Name:Ramos son, 07/17/2025 04:00:00 PM, [address], [facility] [address], [place], [address], Insurance Providers Payer Name Payer Address Payer Phone Subscriber Number Group Number Insured Name Patient Relationship to Insured Coverage Start Date Coverage End Date [facility] [address] [address] [place] [address] [id number] A [id number] WINDY ROSALES Child - Insured has Financial Responsibility Medical (General) History Medical History History ICD Code Problems: Anxiety Atypical glandular cells on cervical Pap anicolaou smear Cardiomyopathy Chronic combined systolic and diastolic heart failure Congestive heart failure Depressive disorder Gastroesophageal reflux disease Generalized anxiety disorder Hyperlipidemia Hypokalemia Left bundle branch block Mild recurrent major depression Moderate recurrent major depression Nicotine dependence with current use Non-rheumatic mitral regurgitation Nonischemic congestive cardiomyopathy Patient encounter status Persistent insomnia Protein level - finding Tobacco dependence syndrome , Surgical History Surgery Date(Month/Year) Heart surgery 02/12/2021 Endometrial ablation (25875) 03/31/2021
--- OUTSIDE RECORDS SUMMARY | 2025-03-22 15:59 | XMS_ITS | Encounter Summary ---
Author Organization [facility] Address [address] [place] [address] Care Team Providers Care Personal Injury Paralegal Name Role Phone Carlitos Marques MD Primary Care Provider [phone] Alicia Katz MD Primary Care Provider [phone] Encounter Details Date Type Department Care Team (Late st Contact Info) Description 06/04/2020 Lab Requisition [facility] [address] [facility] [place] [id number] Yenny Raya MD [address] [facility] [address] [place] [address] Social History Tobacco Use Types Packs/Day Years Used Date Smoking Tobacco: Never Assessed Comments Unknown Sex and Gender Information Value Date Recorded Sex Assigned at Not on file Legal Sex Female 6:24 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 Gender Identity Not on file Sexual Orientation Not on file documented as of this encounter Plan of Treatment Not on file documented as of this encounter Procedures Procedure Name Priority Date/Time Associated Diagnosis Comments DERMATOPATHOLOGY Routine 05/31/2020 12:0 0 AM CDT documented in this encounter Results * DERMATOPATHOLOGY (05/31/2020 12:00 AM CDT) Case Report Dermatopathology Report Case: [id number] Authorizing Provider: Yenny Raya MD Collected: 05/31/2020 12:00 AM Ordering Location: [facility] Received: 06/04/2020 11:43 AM Pathologist: Abelardo Bunn MD Specimens: A) - Skin, mid back B) - Skin, right abdomen 0 2:11 PM CDT DERMATOPATHOLOGY LABORATORY Final Diagnosis Specimen A. SKIN, mid back: LICHEN PLANUS-LIKE KERATOSIS (BENIGN LICHENOID KERATOSIS) (L82.1) Specimen B. SKIN, right abdomen: COMBINED NEVUS (BANAL & BLUE) (D22.9) 0 2:11 PM CDT DERMATOPATHOLOGY LABORATORY at 1411 CDT Clinical History A: R/O BCC. [place] papule. B: R/O melanoma, nevus, angioma. Black papule. 0 2:11 PM CDT DERMATOPATHOLOGY LABORATORY Gross Description Specimen A: Received is one formalin filled container labeled with the patient's name and designated mid back. The specimen consists of a shave measuring [id number]. Jar 0. Specimen B: Received is one formalin filled container labeled with the patient's name and designated right abdomen. The specimen consists of a shave measuring 5b0w4yu. Jar 0. 0 2:11 PM CDT DERMATOPATHOLOGY LABORATORY Microscopic Description Specimen A. SKIN, mid back: The epidermis is mildly acanthotic. There is a lichenoid infiltrate with vacuolar changes of basilar keratinocytes and scattered necrotic keratinocytes. Specimen B. SKIN, right abdomen: Within the dermis, there are oval and dendritic shaped melanocytes and melanophages. There are also nests of round and oval melanocytes. 0 2:11 PM CDT DERMATOPATHOLOGY LABORATORY Disclaimer An external and internal positive and negative controls are appropriate for the histochemical, immunohistochemical and immunofluorescence stain(s) in this case (if any), except where stated explicitly. The performance characteristics of the stain(s) cited in this report were developed and its performance characteristic determined by the Dermatopathology Laboratory at [facility], directed by Dr. Florentin Bunn. These tests need not be, and therefore are not, approved by the [place] Food and Drug Administration. The tests are used for clinical purposes. Billing Codes Specimen Charges Stain Charges 47836 01926 1 1 0 2:11 PM CDT DERMATOPATHOLOGY LABORATORY Embedded Images 0 2:11 PM CDT DERMATOPATHOLOGY LABORATORY Pathology/Cytology TISSUE SPECIMEN FROM SKIN / Unknown 05/31/2020 06/04/2020 11:43 AM CDT Miscellaneous samples (specimen) TISSUE SPECIMEN FROM SKIN / Unknown 05/31/2020 06/04/2020 11:43 AM CDT us Yenny Raya MD LAB - PATHOLOGY/CYTOLOGY ORD ERABLES Final Result DERMATOPATHOLOGY LABORATORY [facility] - Department of Dermatology [facility]/[address] [phone] documented in this encounter Visit Diagnoses Not on filedocumented in this encounter Care Teams Personal Injury Paralegal Relationship Specialty Start Date End Date Carlitos Marques MD [address] [place] [phone] PCP - General Internal Medicine 11/22/16 02/09/25 Alicia Katz MD [address] [place] [address] PCP - General Family Medicine 02/10/25 documented as of this encounter
--- OUTSIDE RECORDS SUMMARY | 2025-03-22 15:59 | XMS_ITS | Clinical Summary ---
Author Organization [facility] Address [address] [place] [address] Care Team Providers Care Dancing Instructor Name Role Phone Alicia Katz MD Primary Care Provider [phone] Allergies Active Allergy Reactions Criticality Noted Date [...] Date Chronic combined systolic and diastolic CHF, [facility] A class 1 11/27/2020 Nonischemic dilated cardiomyopathy 11/27/2020 Nonrheumatic mitral valve regurgitation 11/27/19 21 Immunizations Immunization Administration Dates Next Due Flucelvax Influenza Quad 07/14/2020,09/23/2019 Influenza, Quadrivalent, Merlyn l Culture-based MDCK, Antibiotic Free, Intramuscular 10/18/2018 Influenza, Trivalent, IM (MDV) 08/12/2020 Influenza, Unspecified 07/21/2012 MMR 11/22/2016 Pfizer SARS-CoV-2 Monovalent Vaccination (12+ Yrs) PURPLE 11/21/2020,11/01/2020 Surgical History Surgery Date Site/Laterality Comments SECTION Medical History Medical History Date Comments GERD (gastroesophageal reflux disease) 1986 Anxiety 1989 Depression 1998 Heart disease 2020 Family History Medical History Relation Name Comments Cancer Father Jje Early Father Jje Hyperlipidemia Father Jje Memory loss Father Jje Stent Father Jje Cancer Mother Ske Diabetes Mother Ske Hypertension Mother Ske Relation Name Status Comments Father Jje Mother Ske Social History Tobacco Use Types Packs/Day Years [...] on file Legal Sex Female 9:54 AM 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 Gender Identity Not on file Sexual Orientation Not on file Obstetrics History Last Filed Vital Signs Vital Sign Reading Time Taken Comments Blood Pressure 120/70 11/23/2020 8:57 AM BENCH PRECISION ASSEMBLER Pulse 98 11/23/2020 8:57 AM BENCH PRECISION ASSEMBLER Temperature - - Respiratory Rate - - Oxygen Saturation 98% 11/23/2020 8:57 AM BENCH PRECISION ASSEMBLER Inhaled Oxygen Concentration - - Weight 65.8 kg (145 lb) 01/21/2023 11:49 AM CDT Height 157.5 cm (5' 2) 01/21/2023 11:49 AM CDT Body Mass Index 26.52 01/21/2023 11:49 AM CDT Plan of Treatment Health Maintenance Due Date Last Done Comments Breast Cancer Screening-Mammogram 1969 Cervical Cancer Screening 1969 Colon Cancer Screening-Colonoscopy 1969 Depression Screening 1969 Hepatitis C Screening 1969 DTaP/Tdap/Td Vaccine (1 - Tdap) 1980 Hepatitis B Screening 1987 Regular Well Visit/Exam 18-64 1987 Pneumococcal vaccine <65 (1 of 2 - PCV) 1988 Zoster Vaccine (1 of 2) 2019 Covid-19 Vaccine (3 - 2023-2 5 season) 2024 11/21/2020, 11/01/2020 Influenza Vaccine (Season Ended) 2025 08/12/2020, 07/14/2020, 09/23/2019, Additional history exists [facility] Care Teams Dancing Instructor Relationship Specialty Start Date End Date Alicia Katz MD PCP - General Family Medicine 10/26/20
--- OUTSIDE RECORDS SUMMARY | 2025-03-22 15:59 | XMS_ITS | Clinical Summary ---
Author Organization [facility] Address [address] [place] [address] Care Team Providers Care Collections Curator Name Role Phone Alicia Katz MD Primary Care Provider [phone] Source Comments [facility],non-owned Affiliates and Associated Physician Practices is amultiple site organization consisting of ambulatory clinics and hospital sitesin [place], [place]. This disclosure is being madepursuant to the Care Everywhere program and may not contain all information available regarding this patient. Last updated 18.[facility] Allergies Active Allergy Reactions Criticality Noted Date Comments Codeine Rash,Vomiting Medium 08/27/2018 Erythromycin Rash Medium 08/27/2018 Medications * Be aware that medications may not be up to date on this document. Alwaysverify current medications with the patient. carvedilol (Coreg) 6.25 MG tablet Take 1 (one) tablet by mouth 2 times daily Active DULoxetine (Cymbalta) 60 MG capsule Take 1 (one) capsule by mouth once daily Active furosemide (Lasix) 40 MG tablet Take 1 (one) tablet by mouth once daily Active fluticasone propionate (Flonase) 50 MCG/ACT nasal spray [place] 1 (one) spray into each nostril once daily Active lamoTRIgine (LaMICtal) 25 MG tablet 3 tablets Oral once a day for 90 days Active pantoprazole EC (Protonix) 40 MG tablet Oral 01/14/2024 Active simvastatin (Zocor) 20 MG tablet Oral 01/14/2024 Active Entresto 24-26 MG tablet Take 1 (one) tablet by mouth 2 times daily Active traZODone (Desyrel) 50 MG tablet TAKE 1/2 - 1 TABLET BY MOUTH AT BEDTIME FOR 90 DAYS for 90 Active Active Problems No known active problems Encounters Date Type Department Care Team Description 02/10/2025 9:58 AM CDT - 02/10/2025 11:59 PM CDT Hospital Encounter [facility] DIAGNOSTIC RAD CSM [address] [facility] [place] [address] Jeannette Lazaro PA-C Discharge Disposition: Home or Self Care 02/10/2025 9:30 AM CDT Office Visit [facility] - Orthopedics [address] [place] [address] Carlitos Marques MD Smith, Lauren E, PA-C Strain of right hamstring, sequela (Primary Dx); Right hip impingement syndrome; Chronic right hip pain 02/10/2025 Travel from Last 3 Months Immunizations Immunization Administration Dates Next Due MMR 11/22/2016 Social History Tobacco Use Types Packs/Day Years Used Date Smoking Tobacco: Every Day Cigarettes Smokeless Tobacco: Never Tobacco Cessation:Ready to Q uit: Not Asked; Counseling Given: Not Answered PHQ-2 Answer Date Recorded Patient Health Questionnaire-2 Score 0 02/03/2025 Comments Unknown Sex and Gender Information Value Date Recorded Sex Assigned at Not on file 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 Gender Identity Not on file Sexual Orientation Not on file Last Filed Vital Signs Vital Sign Reading Time Taken Comments Blood Pressure - - Pulse - - Temperature - - Respiratory Rate - - Oxygen Saturation - - Inhaled Oxygen Concentration - - Weight 64.9 kg (143 lb) 02/10/2025 9:23 AM CDT Height 154.9 cm (5' 1) 02/10/2025 9:23 AM CDT Body Mass Index 27.02 02/10/2025 9:23 AM CDT Plan of Treatment Health Maintenance Due Date Last Done Comments COLOGUARD (AGES 45-75) - COLON CA SCREENING 1969 COLON MONITORING 1969 COLONOSCOPY - COLON CA SCREENING 1969 CT COLONOGRAPHY - COLON CA SCREENING 1969 Colorectal Cancer Screening 1969 FIT - COLON CA SCREENING 1969 FLEX SIG - COLON CA SCREENING 1969 MAMMOGRAM 1969 HIV SCREENING 1984 HEPATITIS C SCREENING 07/22/1987 DTAP/TDAP/TD VACCINES (1 - Tdap) 1988 HEPATITIS B VACCINE (1 of 3 - 19+ 3-dose series) 1988 PNEUMOCOCCAL VACCINE 50+ (1 of 2 - PCV) 1988 PAP SMEAR 1990 PAP with HPV 1999 ZOSTER VACCINE (1 of 2) 2019 COVID-19 VACCINE ( season) 2024 10/09/2021, 11/21/2020, 11/01/2020 SCREENING FOR DIABETES 02/10/2025 , 02/12/2021, 01/29/2021 INFLUENZA VACCINE (Season Ended) 2025 08/12/2020, 07/14/2020, 09/23/2019, Additional history exists DEPRESSION SCREENING Completed 02/10/2025 HIB VACCINE Aged Out No longer eligi ble based on patient's age to complete this topic HPV VACCINE Aged Out No longer eligi ble based on patient's age to complete this topic MENINGOCOCCAL (Group B) VACCINE SHARED DECISION-MAKING Aged Out No longer eligible based on patient's age to complete this topic MENINGOCOCCAL GROUPS A/C/Y/W VACCINE Aged Out No longer eligible based on patient's age to complete this topic Procedures Procedure Name Priority Date/Time Associated Diagnosis Comments XR PELVIS W RIGHT HIP 2VW Routine 02/10/2025 10:05 AM CDT Chronic right hip pain from Last 3 Months Results * XR Pelvis W Right Hip 2Vw (02/10/2025 10:05 AM CDT) Anatomical Region Laterality Modality Pelvis Computed Radiogr aphy 02/10/2025 1:09 PM CDT Impressions 02/10/2025 1:09 PM CDT IMPRESSION: Normal right hip. > Interpreting Provider: Joe Tapia MD on 02/10/2025 1:09 PM Narrative 02/10/2025 1:09 PM CDT PROCEDURE: XR PELVIS W RIGHT HIP 2VW DATE/TIME OF EXAM: 02/10/2025 10:05 AM CLINICAL INFORMATION: None relevant/not provided if blank. Indication: M25.551: Chronic right hip pain G89.29: Chronic right hip pain Additional History: COMPARISON: None. TECHNIQUE: FINDINGS: There is no right hip fracture or dislocation. The joint space is normal. There are no erosions. There is a bone island in the femoral neck. The pelvic radiograph is normal. An intrauterine device is noted. Procedure Note Joe Tapia MD - 02/10/2025 PROCEDURE: XR PELVIS W RIGHT HIP 2VW DATE/TIME OF EXAM: 02/10/2025 10:05 AM CLINICAL INFORMATION: None relevant/not provided if blank. Indication: M25.551: Chronic right hip pain G89.29: Chronic right hip pain Additional History: COMPARISON: None. TECHNIQUE: FINDINGS: There is no right hip fracture or dislocation. The joint space isnormal. There are no erosions. There is a bone island in the femoral neck. The pelvic radiograph is normal. An intrauterine device is noted. IMPRESSION: Normal right hip. > Interpreting Provider: Joe Tapia MD on 02/10/2025 1:09 PM Jeannette Lazaro PA-C DIAGNOSTIC IMAGING ORDERABLE S Final Result from Last 3 Months Insurance [facility] Care Teams Collections Curator Relationship Specialty Start Date End Date Alicia Katz MD [address] [place] [address] PCP - General Family Medicine 02/10/25
--- OUTSIDE RECORDS SUMMARY | 2025-03-22 15:59 | XMS_ITS | Clinical Summary ---
Author Organization [facility] Address [address] [place] [address] Phone Care Team Providers Care Oak Tanner Name Role Phone Alicia Katz MD Primary Care Provider [phone] Encounters Date Type Department Care Team Description 02/21/2025 Telephone [facility] [address] [place] [address] Kerri Hutchins PT cancelled eval due to insurance 02/20/2025 Travel 02/13/2025 Transcribe Orders [facility] [address] [place] [address] Jeannette Lazaro PA Strain of right hamstring, sequela (Primary Dx); Right hip impingement syndrome; Chronic right hip pain from Last 3 Months Social History Tobacco Use Types Packs/Day Years Used Date Smoking Tobacco: Never Assessed Comments Unknown Sex and Gender Information Value Date Recorded Sex Assigned at Not on file Legal Sex Female 9:30 PM CDT Gender Identity Not on file Sexual Orientation Not on file Plan of Treatment Health Maintenance Due Date Last Done Comments Hepatitis C Virus (HCV) Screening 1969 Mammogram 1969 Hepatitis B Immunization (1 of 3 - 19+ 3-dose series) 1988 Pap Smear 1990 Cervical Cancer Screening (CCS) 1999 HPV/Cotest 1999 Colonoscopy 2014 Colorectal Cancer Screening 2014 Cologuard 2019 Immunochemical Fecal Occult Blood 2019 Pneumococcal Immunization (50+ years) (1 of 1 - PCV) 2019 Zoster Immunization (1 of 2) 2019 SARS-COV-2 Immunization ( season) 2024 10/18/2022, 10/09/2021, 11/21/2020, Additional history exists Influenza Immunization (Season Ended) 2025 10/02/2022, 07/14/2020, 09/23/2019, Additional history exists Respiratory Syncytial Virus (RSV) Immunization (Adult) (1 - 1-dose 75+ series) 2044 TdaP Immunization Completed 06/05/2021 Human Papillomavirus (HPV) Immunization Aged Out No longer eligible based on patient's age to complete this topic Meningococcal Immunization (ACWY) Aged Out No longer eligible based on patient's age to complete this topic Rotavirus Immunization Aged Out No lo nger eligible based on patient's age to complete this topic Insurance [facility] [place] [id number] Care Teams Oak Tanner Relationship Specialty Start Date End Date Alicia Katz MD [address] [place] [address] PCP - General Family Medicine 02/13/25
== END 2025-03-22 13:42 | disposition home or self-care (01) ==
PROVIDERS: PCP Family Medicine; Visit Provider Family Medicine
DX: R06.2 Wheezing (principal); Z95.0 Presence of cardiac pacemaker
CPT/HCPCS: 71046

== ENCOUNTER 2025-03-30 14:47 | Outpatient (CLI) | payer OTHER, SELFPAY ==
--- OUTSIDE RECORDS SUMMARY | 2025-03-30 14:58 | XMS_ITS | Clinical Summary ---
Author Organization 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 Gender Identity Not on file Sexual Orientation Not on file Obstetrics History Last Filed Vital Signs Vital Sign Reading Time Taken Comments Blood Pressure 120/70 11/23/2020 8:57 AM PHLEBOTOMIST SUPERVISOR/INSTRUCTOR Pulse 98 11/23/2020 8:57 AM PHLEBOTOMIST SUPERVISOR/INSTRUCTOR Temperature - - Respiratory Rate - - Oxygen Saturation 98% 11/23/2020 8:57 AM PHLEBOTOMIST SUPERVISOR/INSTRUCTOR Inhaled Oxygen Concentration - - Weight 65.8 [...] 08/12/2020, 07/14/2020, 09/23/2019, Additional history exists Insurance [facility] Care Teams Buffing Line Set Up Worker Relationship Specialty Start Date End Date Alicia Katz MD PCP - General Family Medicine 10/26/20
--- OUTSIDE RECORDS SUMMARY | 2025-03-30 14:58 | XMS_ITS | Referral Summary ---
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 Gender Identity Not on file Sexual Orientation Not on file Last Filed Vital Signs Vital Sign Reading Time Taken Comments Blood Pressure 120/70 11/23/2020 8:57 AM INTERIOR DESIGN PROJECT MANAGER Pulse 98 11/23/2020 8:57 AM INTERIOR DESIGN PROJECT MANAGER Temperature - - Respiratory Rate - - Oxygen Saturation 98% 11/23/2020 8:57 AM INTERIOR DESIGN PROJECT MANAGER Inhaled Oxygen Concentration - - Weight 65.8 kg (145 lb) 01/21/2023 11:49 AM CDT Height 157.5 cm (5' 2) 01/21/2023 11:49 AM CDT Body Mass Index 26.52 01/21/2023 11:49 AM CDT Plan of Treatment Not on file Insurance [facility] [employer] PPO [facility] Care Teams Swim Coach Relationship Specialty Start Date End Date Alicia Katz MD PCP - General Family Medicine 10/26/20
--- OUTSIDE RECORDS SUMMARY | 2025-03-30 14:59 | XMS_ITS | Clinical Summary ---
Author Organization [facility] Address [address] [place] [address] Care Team Providers Care Global Expansion Sales Director Name Role Phone Alicia Katz MD Primary Care Provider [phone] Source Comments [facility],non-owned Affiliates and Associated Physician Practices is amultiple site organization consisting of ambulatory clinics and hospital sitesin [place], [place], [place] and [place]. This disclosure is being madepursuant to the Care Everywhere program and may not contain all information available regarding this patient. Last updated 18.[facility] Allergies Active Allergy Reactions Criticality Noted Date [...] fluticasone propionate (Flonase) 50 MCG/ACT nasal spray [place] 1 (one) spray into each nostril once [...] - 02/10/2025 11:59 PM CDT Hospital Encounter [facility] DIAGNOSTIC RAD CSM [address] [facility] [place] [address] Jeannette Lazaro PA-C Discharge Disposition: Home or Self Care 02/10/2025 9:30 AM CDT Office Visit [facility] - Orthopedics [address] [place] [address] Carlitos Marques MD Smith, Lauren E, PA-C [...] on file Legal Sex Female 6:24 AM SET UP / OPERATOR Gender Identity Not on file Sexual [...] Final Result from Last 3 Months Insurance [facility] Address: [facility] [id number] [place] [address] [facility] Care Teams Global Expansion Sales Director Relationship Specialty Start Date End Date Alicia Katz MD [address] [place] [address] PCP - General Family Medicine 02/10/25
--- OUTSIDE RECORDS SUMMARY | 2025-03-30 14:59 | XMS_ITS | Continuity of Care Document ---
Author Name [facility] Organization [facility] Care Team Providers Care Outreach Clinician Name Role Phone [facility] Unavailable Unavailable Social History Combined list of available smoking, tobacco, and other social history from Department of Defense and Veterans Affairs facilities. Social History Type Response Date Comment Sourc e This section is an empty social history section. [facility]
--- OUTSIDE RECORDS SUMMARY | 2025-03-30 14:59 | XMS_ITS | Encounter Summary ---
Author Organization [facility] Address [address] [place] [address] Care Team Providers Care Shell Mold Bonder Name Role Phone Carlitos Marques MD Primary Care Provider [phone] Alicia Katz MD Primary Care Provider [phone] Encounter Details Date Type Department Care Team (Late st Contact Info) Description 05/03/2018 Lab Requisition [facility] Care DermPath Lab [address] [place] [address] Yenny Raya MD [address] [facility] [address] [place] [address] Social History Tobacco Use Types Packs/Day Years Used Date Smoking Tobacco: Never Assessed Comments Unknown Sex and Gender Information Value Date Recorded Sex Assigned at Not on file Legal Sex Female 6:24 AM IN HOME CAREGIVER Gender Identity Not on file Sexual Orientation Not on file documented as of this encounter Plan of Treatment Not on file documented as of this encounter Procedures Procedure Name Priority Date/Time Associated Diagnosis Comments DERMATOPATH TECHNICAL REPORT Routine 04/30/2018 12:00 AM CDT documented in this encounter Results * DERMATOPATH TECHNICAL REPORT (04/30/2018 12:00 AM CDT) Case Report Dermatopathology Report Case: [id number] Authorizing Provider: Yenny Raya MD Collected: 04/30/2018 [...] specimen consists of a shave biopsy measuring [id number]. Jar 0. [facility] Dermatopathology Laboratory performed the technical component [...] determined by the Dermatopathology Laboratory at [facility]. These tests need not be, and therefore are not, approved by the [place] Food and Drug Administration. The tests are used for clinical purposes. 11:21 AM T DERMATOPATHOLOGY LABORATORY at 1121 CDT Pathology/Cytolog y TISSUE SPECIMEN FROM SKIN / Unknown 04/30/2018 05/03/2018 6:18 AM CDT Yenny Raya MD LAB - PATHOLOGY/CYTOLOGY ORD ERABLES Final Result DERMATOPATHOLOGY LABORATORY [facility] - Department of Dermatology [address] [place] [address] 5th Floor Lab [address] [phone] documented in this encounter Visit Diagnoses Not on filedocumented in this encounter Care Teams Shell Mold Bonder Relationship Specialty Start Date End Date Carlitos Marques MD [address] [place] [address] PCP - General Internal Medicine 11/22/16 02/09/25 Alicia Katz MD [address] [place] [address] PCP - General Family Medicine 02/10/25 documented as of this encounter
--- OUTSIDE RECORDS SUMMARY | 2025-03-30 14:59 | XMS_ITS | Encounter Summary ---
Author Organization [facility] Address [address] [place] [address] Care Team Providers Care Recorder Gravity Prospecting Name Role Phone Carlitos Marques MD Primary Care Provider [phone] Alicia Katz MD Primary Care Provider [phone] Encounter Details Date Type Department Care Team (Late st Contact Info) Description 06/04/2020 Lab Requisition [facility] DermPath Lab [address] [facility], [place] [id number] Yenny Raya MD [address] [facility] [address] [place] [address] Social History Tobacco Use Types Packs/Day Years Used Date Smoking Tobacco: Never Assessed Comments Unknown Sex and Gender Information Value Date Recorded Sex Assigned at Not on file Legal Sex Female 6:24 AM 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 DE 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 Gender Identity Not on file Sexual Orientation Not on file documented as of this encounter Plan of Treatment Not on file documented as of this encounter Procedures Procedure Name Priority Date/Time Associated Diagnosis Comments DERMATOPATHOLOGY Routine 05/31/2020 12:0 0 AM CDT documented in this encounter Results * DERMATOPATHOLOGY (05/31/2020 12:00 AM CDT) Case Report Dermatopathology Report Case: [id number] Authorizing Provider: Yenny Raya MD Collected: 05/31/2020 12:00 AM Ordering Location: [facility] DermPath Lab Received: 06/04/2020 11:43 AM Pathologist: [...] 1411 CDT Clinical History A: R/O BCC. [place] papule. B: R/O melanoma, nevus, angioma. Black papule. 0 2:11 PM CDT DERMATOPATHOLOGY LABORATORY Gross Description Specimen A: Received is one formalin filled container labeled with the patient's name and designated mid back. The specimen consists of a shave measuring [id number]. Jar 0. Specimen B: Received is one formalin filled container labeled with the patient's name and designated right abdomen. The specimen consists of a shave measuring [id number]. Jar 0. 0 2:11 PM CDT DERMATOPATHOLOGY [...] characteristic determined by the Dermatopathology Laboratory at [facility], directed by Dr. Florentin Bunn. These tests need not be, and therefore are not, approved by the [place] Food and Drug Administration. The tests are used for clinical purposes. Billing Codes Specimen Charges Stain Charges 31527 99143 1 1 0 2:11 PM CDT DERMATOPATHOLOGY LABORATORY Embedded Images 0 2:11 PM CDT DERMATOPATHOLOGY LABORATORY Pathology/Cytology TISSUE SPECIMEN FROM SKIN / Unknown 05/31/2020 06/04/2020 11:43 AM CDT Miscellaneous samples (specimen) TISSUE SPECIMEN FROM SKIN / Unknown 05/31/2020 06/04/2020 11:43 AM CDT us Yenny Raya MD LAB - PATHOLOGY/CYTOLOGY ORD ERABLES Final Result DERMATOPATHOLOGY LABORATORY [facility] - Department of Dermatology [facility]/[address] [phone] documented in this encounter Visit Diagnoses Not on filedocumented in this encounter Care Teams Recorder Gravity Prospecting Relationship Specialty Start Date End Date Carlitos Marques MD [address] [place] [phone] PCP - General Internal Medicine 11/22/16 02/09/25 Alicia Katz MD [address] [place] [address] PCP - General Family Medicine 02/10/25 documented as of this encounter
--- OUTSIDE RECORDS SUMMARY | 2025-03-30 14:59 | XMS_ITS | Encounter Summary ---
Author Organization [facility] Address [address] [place] [address] Care Team Providers Care Automotive Service Director Name Role Phone Alicia Katz MD Primary Care Provider [phone] Encounter Details Date Type Department Care Team (Late st Contact Info) Description 03/28/2025 External Device Data [facility] ABSTRACTION Provider, Abstract NO ADDRESS ON FILE Social History Tobacco Use Types Packs/Day Years Used Date Smoking Tobacco: Every Day Cigarettes 1 25 Alcohol Use Standard Drinks/Week Comments Never 0 (1 standard drink = 0.6 oz pur e alcohol) Comments Unknown Sex and Gender Information Value Date Recorded Sex Assigned at Not on file Legal Sex Female 2:31 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 Gender Identity Not on file Sexual Orientation Not on file documented as of this encounter Plan of Treatment Upcoming Encounters Date Type Department Care Team (Late st Contact Info) Description 05/30/2025 3:00 PM CDT Office Visit [facility] Heart and Vascular - [address] [place] [address] Brennan Hauser MD [address] [place] [address] [address] [place] [address] 06/27/2025 8:00 AM CDT Procedure visit [facility] AT [address] [place] [address] documented as of this encounter Visit Diagnoses Not on filedocumented in this encounter Care Teams Automotive Service Director Relationship Specialty Start Date End Date Alicia Katz MD [address] [place] [phone] PCP - General Family Practice 11/27/20 documented as of this encounter
--- OUTSIDE RECORDS SUMMARY | 2025-03-30 14:59 | XMS_ITS | Clinical Summary ---
Author Organization [facility] Address [address] [place] [address] Phone Care Team Providers Care Nuclear Plant Operator Name Role Phone Ailcia Katz MD Primary Care Provider [phone] Encounters Date Type Department Care Team Description 02/21/2025 Telephone [facility] [address] [place] [address] Kerri Hutchins PT cancelled eval due to insurance 02/20/2025 Travel 02/13/2025 Transcribe Orders [facility] [address] [place] [address] Jeannette Lazaro PA Strain of right hamstring, [...] patient's age to complete this topic Insurance [facility] [address] Care Teams Nuclear Plant Operator Relationship Specialty Start Date End Date Alicia Katz MD [address] [place] [address] PCP - General Family Medicine 02/13/25
--- OUTSIDE RECORDS SUMMARY | 2025-03-30 14:59 | XMS_ITS | Clinical Summary ---
Author Organization [employer] Maxime Drew Address [address] [place] [address] Phone Care Team Providers Care Field Support Technician Name Role Phone Alicia Katz MD Primary Care Provider [phone] Allergies Active Allergy Reactions Criticality Noted Date [...] 9 Active fluticasone propionate (FLONASE) 50 mcg/spray Avella, Suspension nasal inhaler Administer 1 Avella in each nostril. Active lamoTRIgine 25 mg [...] Date Chronic combined systolic and diastolic CHF, [facility] A class 1 11/27/2020 Nonrheumatic mitral valve regurgitation 11/27/19 21 Nonischemic dilated cardiomyopathy 11/27/2020 Encounters Date Type Department Care Team Description 03/28/2025 External Device Data STL ABSTRACTION Provider, Abstract 03/15/2025 10:00 AM CDT Procedure visit [facility] AT [address] [place] [address] Nonischemic dilated cardiomyopathy (CMS/HCC) (Primary Dx); ICD (implantable cardioverter-defibril lator) in place 03/14/2025 External Device Data STL ABSTRACTION Provider, Abstract 03/02/2025 External Device Data [facility] ABSTRACTION Provider, Abstract 03/01/2025 External Device Data [facility] ABSTRACTION Provider, Abstract 02/28/2025 External Device Data ST[facility] ABSTRACTION Provider, Abstract 02/14/2025 11:45 AM CDT Procedure visit [facility] AT [address] [place] [address] Nonischemic dilated cardiomyopathy (CMS/HCC) (Primary Dx); ICD (implantable cardioverter-defibril lator) in place 02/02/2025 Chart Note [facility] AT [address] [place] [address] Alexsandra De Santiago MD ICD CHECK (Device Reset Alert) 12/28/2024 External Device Data STL ABSTRACTION Provider, Abstract from Last 3 Months Immunizations Immunization Administration Dates Next Due ([employer])(12 YR UP) COVID-19 VACCINE - EMERGENCY USE AUTHORIZATION, MRNA, [id number](PF) 30 MCG/0.3 ML IM SUSP 11/21/2020,10/31/2020 Influenza [...] on file Legal Sex Female 2:31 PM LAST SAWYER Gender Identity Not on file Sexual Orientation Not on file Last Filed Vital Signs Vital Sign Reading Time Taken Comments Blood Pressure 128/70 05/31/2024 3:34 PM CDT Pulse 90 05/31/2024 3:34 PM CDT Temperature 36.3 C (97.3 F) 12/03/2021 3:30 PM LAST SAWYER Respiratory Rate 19 02/12/2021 5:45 PM CDT [...] Description 05/30/2025 3:00 PM CDT Office Visit [facility] [address] [place] [id number] Kaylee Hauser MD [address] [place] [address] [address] [place] [address] 06/27/2025 8:00 AM CDT Procedure visit [facility] AT [address] [place] [address] Health Maintenance Due Date Last [...] 11/21/2020, 10/31/2020 Medical Devices Implanted Type Area Chin Strap Cutter Device Identifier Shelf Expiration Date Model / Serial / Lot Defib Icd Bostic Dr Mri Df4 Dual Chmbr Surescan [id number] - [id number] Implanted:Qty : 1 on 02/12/2021 by Alexsandra De Santiago MD at [facility] Defibrillator Left: Chest [employer]- CARD RHYTHM MGMT 06/25/2022 [id number] / [id number] / [id number] Description:RA PWAVE 2.3 - 7 22 IMPEDANCE - CAP THRESH 1.0V@0.4 RV R WAVE 12.9 - 551 IMP - CAP 0.7V@0.4 RV COIL 71 OHMS Lead Sprint Quattro Secure-S 55cm 6935m-55 - Csc - [id number] Implanted:Qty : 1 on 02/12/2021 by Alexsandra De Santiago MD at [facility] Lead Left: Chest [employer]- CRM - BULK BUY 10/31/2022 [id number] / [id number] V / Lead Pacing Capsure Fix Novus 45cm 198023 - Csc - [id number] Implanted:Qty : 1 on 02/12/2021 by Alexsandra De Santiago MD at [facility] Lead Left: Chest [employer]- CRM - BULK BUY 07/04/2021 [id number] / [id number] / Procedures Procedure Name Priority Date/Time Associated Diagnosis Comments NC PRGRMG EVAL IMPLANTABLE IN PRSN DUAL LEAD DFB Routine 03/15/2025 10:20 AM CDT Nonischemic dilated cardiomyopathy (CMS/HCC) ICD (implantable cardioverter-defibril lator) in place NC REM INTERROG PM/LDLS PM/IDS <90 D TECH REVIEW Routine 02/13/2025 8:25 PM CDT Nonischemic dilated cardiomyopathy (CMS/HCC) ICD (implantable cardioverter-defibril lator) in place NC INTERROGATION EVAL REMOTE </90 D 1/2/SURVEILLANCE SENSOR OPERATOR LD DFB Routine 02/13/2025 8:25 PM CDT Nonischemic dilated cardiomyopathy (CMS/HCC) ICD (implantable cardioverter-defibril lator) in place from Last 3 Months Results * NC PRGRMG EVAL IMPLANTABLE IN PRSN DUAL LEAD DFB (03/15/2025 10:20 AM CDT) 03/15/2025 10:2 0 AM CDT Narrative INTERFACE SYSTEM - 03/15/2025 12:24 PM CDT Alexsandra De Santiago MD 03/17/2025 3:36 PM ICD interrogation: Appropriate dual chamber device function Battery: 9.5 years Presenting: AsVs Underlying: NSR Ap 0.4% Cheese Supervisor <0.1% Since last remote 02/14/25 No arrhythmias noted HV Therapy pathways changed to B>AX per Medtr[employer] guidelines Per epic, pt takes coreg Scheduled for remote in 3 months ADDENDUM: Device interrogation reviewed Agree with above Alexsandra De Santiago MD, [facility] 03/17/2025 3:36 PM us Alexsandra De Santiago MD CARDIAC SERVICES ORDERABLES Edited Result - Final INTERFACE SYSTEM Refer to clinic/hospital department * NC INTERROGATION EVAL REMOTE </90 D 1/2/SURVEILLANCE SENSOR OPERATOR LD DFB, NC REM INTERROG PM/LDLS PM/IDS <90 D TECHREVIEW (02/13/2025 8:25 PM CDT) 02/13/2025 8:25 PM CDT Narrative INTERFACE SYSTEM - 02/14/2025 8:29 AM CDT Alexsandra De Santiago MD 02/15/2025 4:33 PM Remote Carelink Transmission Appropriate dual chamber ICD function. Presenting Rhythm: AsVs Battery: 9.5 years LAY MIDWIFE <1% No arrhythmias noted. Per Dizkon, Patient takes Coreg. Results sent via [employer] ADDENDUM: Device interrogation reviewed Agree with above Alexsandra De Santiago MD, [facility] 02/15/2025 4:33 PM Alexsandra De Santiago MD CARDIAC SERVICES ORDERABLES Edited Result - Final INTERFACE SYSTEM Refer to clinic/hospital department from Last 3 Months Insurance [employer] PPO [id number] RX [facility] Commercial Advance Directives For more information, please contact: [phone] * Full Code (Latest Code Status on File) Date Activated Date Inactivated Comments 02/12/2021 11:53 AM 02/12/2021 8:21 PM Care Teams Field Support Technician Relationship Specialty Start Date End Date Alicia Katz MD [address] [place] [id number] PCP - General Family Practice 11/27/20
--- OUTSIDE RECORDS SUMMARY | 2025-03-30 14:59 | XMS_ITS | Patient Health Record ---
Author Organization [facility] [employer] Address [address] [place] [address] Care Team Providers Care Fuel Injection Servicer Name Role Phone Ramos Goode Unavailable [phone] Allergies Allergen (clinical drug ingredient) Drug/Non Drug [...] 180-240 MG Oral 01/14/2024 Active FLUCELVAX QUAD 5250-9413 60 mcg (15 mcg x 4)/0.5 mL INTRAMUSCULAR *Reorder from [employer] for eRx and Interaction Alerts* 01/14/2024 Active [...] Problem Status W/U Status Risk Notes Problem Nicotine dependence, cigarettes, uncomplicated (F17.210) Active confirmed Problem Mild recurrent major depression (64101510) Major depressive disorder, recurrent, mild (F33.0) Active confirmed Problem Generalized anxiety disorder (93415522) Generalized anxiety disorder (F41.1) Active confirmed Problem Insomnia (768499187) Other insomnia (G47.09) Active confirmed Vital Signs Heart Rate 70 /min 07/15/2024 Height-cm 154.94 cm 01/13/2025 Blood pressure diastolic 68 mm Hg 07/15/2024 Weight-kg 63.96 kg 07/15/2024 Height 61.00 in 01/13/2025 Blood pressure systolic 132 mm Hg 07/15/2024 Weight 141 lbs 07/15/2024 BMI 26.64 kg/m2 07/15/2024 Encounters Encounter Location Date Provider Diagnosis [facility] [address] [place] [address] [address] [facility] [address] [place] [address] 07/15/2024 Ramos Goode Major depressive disorder, recurrent, mild F33.0 ; Generalized anxiety disorder F41.1 ; Other insomnia G47.09 and Nicotine dependence, cigarettes, uncomplicated F17.210 [facility] [address] [place] [address] [place] [address] 01/13/2025 Ramos Goode Major depressive disorder, recurrent, mild F33.0 ; Generalized anxiety disorder F41.1 ; Other insomnia G47.09 ; Nicotine dependence, cigarettes, uncomplicated F17.210 and Nicotine use Z72.0 Assessments Encounter Date Diagnosis (ICD Code) Assessment Notes Treatment Notes Treatment Clinical Notes Section Notes 01/13/2025 Major depressive disorder, recurrent, mild (ICD-10 - F33.0) 07/15/2024 Major depressive disorder, recurrent, mild (ICD-10 [...] symptoms arise before the next appointment. 07/15/2024 Other insomnia (ICD-10 - G47.09) trazodone [...] symptoms arise before the next appointment. 01/13/2025 Generalized anxiety disorder (ICD-10 - F41.1) 01/13/2025 Other insomnia (ICD-10 - G47.09) trazodone [...] Provider Name:Ramos son, 07/17/2025 04:00:00 PM, [address], [place], [address], Insurance Providers Payer Name Payer Address Payer Phone Subscriber Number Group Number Insured Name Patient Relationship to Insured Coverage Start Date Coverage End Date [facility] [address] [address] [place] [address] [id number] WINDY ROSALES Child - Insured has Financial [...] Surgery Date(Month/Year) Heart surgery 02/12/2021 Endometrial ablation (18157) 03/31/2021
--- NOTE | 2025-03-31 14:19 | WPDPFTINT ---
PFT Procedure Performed PFT Procedure Performed Plethysmography (Lung Vol) Diffusing Cap (DLCO) Flow Vol Loop Spirometry w/o Bronchodil PFT Interpretation This is a pulmonary function test with spirometry, plethysmography and diffusing capacity. The test was performed and results interpreted in accordance with the 2019 and 2005 ATS/ERS Task Force guidelines respectively using the Global Lung Function Initiative-2012 reference equations. Patient demonstrated good effort and cooperation. Reproducibility criteria were met. The quality of the spirometry maneuver was Grade A. Findings: Spirometry: There is a mid expiratory plateau or knee contour in 4 of 4 expiratory maneuvers. The contour the inspiratory flow tracing is normal. The FVC is 2.90 L, 97% predicted. The FEV1 is 1.99 L, 84% predicted. The FEV1: FVC ratio 69%. Plethysmography: The total lung capacity is 4.30 L, 93% predicted. The functional residual capacity is 2.28 L, 89% predicted. The residual volume is 1.27 L, 73% predicted. Diffusing capacity: The diffusing capacity unadjusted for hemoglobin and carboxyhemoglobin is 13.3, 64% predicted. The diffusing capacity adjusted for alveolar volume is 3.42, 73% predicted. Impression: There is a reproducible knee pattern of the expiratory flow tracing which can be a normal variant or pathologic and has been attributed to a choke point section of the bronchial tree. The normal variant is more common in younger female patients, decreases with age and is more pronounced in the post bronchodilator efforts. The pattern has also been described with kyphosis, kyphoscoliosis, central obstructing mass, and post lung transplantation. Clinical correlation is recommended. Otherwise, the spirometry is normal with no evidence of an obstructive abnormality. The lung volumes are normal. The diffusing capacity unadjusted for hemoglobin and carboxyhemoglobin is mildly decreased and normalizes when adjusted for alveolar volume. There are no prior studies for comparison
== END 2025-03-30 14:48 | disposition home or self-care (01) ==
LOC: ANHPFT 14:49
PROVIDERS: PCP Family Medicine; Visit Provider Family Medicine
DX: R06.2 Wheezing (principal)
CPT/HCPCS: 94375; 94726; 94729